=== PATIENT | male | born 1985 | race Hispanic/Latino ===

== ENCOUNTER → 2023-10-20 | Outpatient (CLI) | payer BC, MEDICARE ==
[~2023-10-20] MED LIST: AMOX1TAB16 PO; FOLI0.8T2 PO; LABE300T4 PO; LISI40TA9 PO; NIFE-40 PO; SEVE800T27 PO
== END | disposition home or self-care (01) ==
LOC: LAB 09:43
PROVIDERS: ATTEND Thoracic Surgery (Cardiothoracic Vascular Surgery)
DX: Z48.812 Encounter for surgical aftercare following surgery on the circulatory system (principal); N18.6 End stage renal disease
CPT/HCPCS: 36415; 82565; 84520

== ENCOUNTER → 2023-10-22 | Outpatient (CLI) | payer BC, MEDICARE ==
[~2023-10-22] MED LIST changes: +IOHEXOL 350 MG/ML 100ML INFUS..BTL IV ONE
== END | disposition home or self-care (01) ==
LOC: RAH 09:21
PROVIDERS: ATTEND Thoracic Surgery (Cardiothoracic Vascular Surgery)
DX: Z48.812 Encounter for surgical aftercare following surgery on the circulatory system (principal); N18.6 End stage renal disease; I77.0 Arteriovenous fistula, acquired
CPT/HCPCS: 73206; Q9967

== ENCOUNTER 2024-02-09 06:36 | Day surgery (SDC) | payer BC, MEDICARE ==
[2024-02-08 11:55] LABS: HEMATOCRIT 34.8 % (42-54); MEAN CORPUSCULAR HEMOGLOBIN 31.3 pg (27.0-33.0); MEAN CORPUSCULAR HGB CONC 34.5 g/dL (32.0-36.0); MEAN CORPUSCULAR VOLUME 90.6 fL (79-99); RED BLOOD CELL COUNT(AUTO) 3.84 MIL/uL (4.50-6.20); RED CELL DISTRIBUTION WIDTH 11.8 % (11.0-15.5); WHITE BLOOD COUNT (AUTO) 4.9 K/uL (4.8-10.8)
[2024-02-08 12:09] LABS: INR 0.96 (0.85-1.15); PROTHROMBIN TIME 11.4 SEC (9.6-11.6)
[2024-02-08 12:10] LABS: PARTIAL THROMBOPLASTIN TIME 29.8 SEC (26.3-35.5)
[2024-02-08 12:12] VITALS: BP 163/94; PULSE 68; RESP 15
[2024-02-08 12:25] LABS: CREATININE 16.9 mg/dL (0.5-1.3)
[2024-02-09] VITALS (17 sets, daily range): BP systolic 130–150; BP diastolic 72–97; PULSE 74–85; RESP 13–16
[~2024-02-09] VITALS: Ht 175.3 cm; Wt 114.6 kg
[~2024-02-09 06:36] MED LIST changes: -AMOX1TAB16 PO; -FOLI0.8T2 PO; -IOHEXOL 350 MG/ML 100ML INFUS..BTL IV ONE; -LABE300T4 PO; +LISI10TA24 PO; -LISI40TA9 PO; -NIFE-40 PO; +SEVE800T27; -SEVE800T27 PO
[2024-02-09] MEDS ORDERED: CEFAZOLIN SODIUM 2 GM VIAL ONE (07:05)
[2024-02-09] MEDS ORDERED: CEFAZOLIN SODIUM 1 GM VIAL ONE (07:22)
[2024-02-09] MEDS ORDERED: LIDOCAINE HCL 1% 20 ML VIAL ONE (07:22)
[2024-02-09 07:33] LABS: POTASSIUM 4.4 mmol/L (3.5-5.1)
[2024-02-09 07:37] LABS: CREATININE 12.3 mg/dL (0.5-1.3)
[2024-02-09] MEDS ORDERED: LIDOCAINE PF 100MG/5ML (2%) SYRINGE 5ML ONE ×2 (08:22→10:01)
[2024-02-09] MEDS ORDERED: MIDAZOLAM HCL 1 MG/ML 2ML VIAL ONE (08:22)
[2024-02-09] MEDS ORDERED: DEXAMETHASONE SOD PHOSPHATE 10MG/ML 1ML VIAL ONE (08:22)
[2024-02-09] MEDS ORDERED: SUCCINYLCHOLINE CHLORIDE 20 MG/ML 10 ML VIAL ONE (08:23)
[2024-02-09] MEDS ORDERED: ONDANSETRON 4MG INJ ONE (08:23)
[2024-02-09] MEDS ORDERED: NEOSTIGMINE METHYLSULFATE 1MG/ML IV ONE (08:23)
[2024-02-09] MEDS ORDERED: FENTANYL CITRATE PF 50 MCG/1 ML 2ML VIAL ONE (08:23)
[2024-02-09] MEDS ORDERED: ROCURONIUM BROMIDE 10MG/1ML 5ML VL ONE (08:23)
[2024-02-09] MEDS ORDERED: PROPOFOL 10 MG/ML 20ML VIAL IV ONE ×2 (08:23→10:08)
[2024-02-09] MEDS ORDERED: GLYCOPYRROLATE 0.2 MG/ML 5 ML VIAL ONE (08:23)
[2024-02-09] MEDS: CEFAZOLIN SODIUM 2 GM VIAL IVPB ONE (08:50)
[2024-02-09] MEDS ORDERED: BUPIVACAINE/PF 0.25% 30ML VIAL IJ ONE (09:06)
[2024-02-09] MEDS ORDERED: EPHEDRINE SULFATE 50 MG/ML AMPULE ONE (09:17)
[2024-02-09] MEDS: BUPIVACAINE/PF 0.25% 30ML VIAL IJ ONE ×2 (09:30→09:59)
[2024-02-09] MEDS: LIDOCAINE HCL 1% 20 ML VIAL INJ ONE ×2 (09:30→09:59)
[2024-02-09] MEDS: CEFAZOLIN SODIUM 1 GM VIAL IRRIG ONE (09:30)
[2024-02-09] MEDS ORDERED: HEPARIN 10,000 UNIT/10ML (1,000 UNIT/ML) VIAL ONE (09:35)
[2024-02-09] MEDS ORDERED: PROTAMINE SULFATE 10 MG/ML 5 ML VIAL ONE (09:36)
[2024-02-09] MEDS: 0.9% NACL 500ML IV.SOLN 500 ML IV ONE (09:56)
[2024-02-09] MEDS ORDERED: PHENYLEPHRINE HCL 10 MG/ML 1ML VIAL IV ONE (10:00)
== END 2024-02-09 12:20 | disposition home or self-care (01) ==
LOC: DAH 06:36
PROVIDERS: ATTEND Thoracic Surgery (Cardiothoracic Vascular Surgery)
DX: I12.0 Hypertensive chronic kidney disease with stage 5 chronic kidney disease or end stage renal disease (principal); N18.6 End stage renal disease; Z79.899 Other long term (current) drug therapy; Z79.01 Long term (current) use of anticoagulants; Z87.891 Personal history of nicotine dependence; Z98.890 Other specified postprocedural states; Z99.2 Dependence on renal dialysis
CPT/HCPCS: 80048 ×2; 85027; 85610; 85730; 86850; 86900; 86901; 36415 ×2; 93005; 36830; 82948; 71045; A6260; A4663; A6207; A4215 ×2; A4452; J7040; J3010; J0690 ×4; J1100; J0330; J0665 ×2; J3490 ×3; J2001 ×2; J2720; J1644 ×2; J2250; J2704 ×2; J2405; J2710; J2371; A6446; C9250; A4649 ×3; C1713 ×2; C1768; A5120; A4657; A4213; A4222; A4221; A4216; A4223 ×2; G0168

== ENCOUNTER 2025-08-31 16:46 | Inpatient (IN) | payer BC, MEDICARE ==
[~2025-08-31] VITALS: Ht 177.8 cm; Wt 122.7 kg
[2025-08-31] MEDS ORDERED: 0.9%NACL 1000ML 1,000 ML IV ONE (17:30)
[2025-08-31 17:35] LABS: IMMATURE GRANULOCYTE ABSOLUTE 0.09 K/uL (0-1); NUCLEATED RED BLOOD CELLS 0.0 % (0.0-0.19); PLATELET COUNT (AUTO) 186 K/uL (130-400); RED BLOOD CELL COUNT(AUTO) 4.43 MIL/uL (4.50-6.20); RED CELL DISTRIBUTION WIDTH 14.3 % (11.0-15.5); WHITE BLOOD COUNT (AUTO) 15.8 K/uL (4.8-10.8)
--- NOTE | 2025-08-31 17:51 | ERN ---
General Chief Complaint: Fever Stated Complaint: FEVER Time Seen by MD: 17:10 Time Seen by Midlevel: 17:10 Source: patient History of Present Illness Initial Comments 40-year-old male with a past medical history of end-stage renal disease on hemodialysis presents to the emergency department for evaluation of a fever, chills, generalized body weakness that started yesterday and progressively worsened today. Patient is followed by psychiatric therapist Dr. Monroy and is on a Thursday/Thursday/Thursday dialysis schedule with his last dialysis done yesterday. He specifically denies any shortness of breath, chest pain, or any other symptoms at this time. He does admit to producing urine and does report dysuria. Allergies: Coded Allergies: No Allergy Information Available (Verified Allergy, Unknown, 08/10/22) No Known Allergies (Unverified Allergy, Unknown, 05/21/23) Home Meds Reported Medications Sevelamer HCl (Sevelamer HCl) 800 Mg Tablet, 1600 MG TIDMEALS 02/08/24 Discontinued Reported Medications Lisinopril (Lisinopril) 10 Mg Tablet, 1 TAB PO DAILY 02/08/24 Past Medical History Past Medical History: Hypertension, Renal Disese Past Surgical History: RAVA Social History Social History: Negative, Lives with family ROS Dictation CONSTITUTIONAL: Negative except for HPI HEAD/FACE: Negative except for HPI EENT: Negative except for HPI RESPIRATORY: Negative except for HPI GASTROINTESTINAL/ABDOMINAL: Negative except for HPI GENITOURINARY: Negative except for HPI MUSCULOSKELETAL: Negative except for HPI INTEGUMENTARY: Negative except for HPI NEUROLOGICAL/PSYCH: Negative except for HPI HEMATOLOGIC/LYMPHATIC: Negative except for HPI All Systems Negative, Except as noted above. 13 point review of systems assessed and all negative except for above. Physical Exam Physical Exam Dictation Vital Signs reviewed General Appearance: Alert, oriented x 3, no acute distress, well developed, nourished. Head and Face: non-traumatic. Eyes: PERRL, pink conjunctivas, eyelid no trauma, anterior chamber with arcus senilis. Ears: Pinnas intact and no signs of trauma or erythema ear canals clear and no discharge TM no erythema Nose: No discharge, no bleeding. Oropharynx: Mouth normal, tongue pink, pharynx clear,no erythema, tonsils no exudates, no abscesses noted, mucous membrane moist Neck: Supple, non-tender, no thyromegaly, no masses, no JVD, no bruits Breast:Deferred Chest:No tenderness, no crepitus, no paradoxical movement, no retractions Lungs:Clear, well-ventilated, symmetric, no rales, no wheezing, no rhonchi, no stridor, good breath sounds bilaterally Heart: Regular rate, regular rhythm, no murmur, no gallops Vascular: no peripheral edema, Abdomen: Soft, positive bowel sounds, nondistended, no guarding, nontender, no rebound, no masses no hepatomegaly, no splenomegaly, no Lima's sign, no hernias. Rectal: Deferred Genital: Deferred Neurological: Normal speech, motor function intact, sensory function intact Musculoskeletal: Neck nontender, full range of motion, back nontender, full range of motion, Extremities: nontender, full range of motion Skin: Color pink, dry, no turgor, no rash, no lacerations, no abrasions, no contusions. Lymphatic: Deferred Results Laboratory and Microbiology Lab and Micro Result Laboratory Tests Test 08/31/25 17:19 08/31/25 17:32 White Blood Count 15.8 K/uL (4.8-10.8) H Red Blood Count 4.43 MIL/uL (4.50-6.20) L Hemoglobin 14.0 g/dL (14.0-18.0) Hematocrit 42.4 % (42-54) Mean Corpuscular Volume 95.7 fL (79-99) Mean Corpuscular Hemoglobin 31.6 pg (27.0-33.0) Mean Corpuscular Hemoglobin Concent 33.0 g/dL (32.0-36.0) Red Cell Distribution Width 14.3 % (11.0-15.5) Platelet Count 186 K/uL (130-400) Mean Platelet Volume 11.5 fL (7.5-10.5) H Immature Granulocyte % (Auto) 0.6 % (0-1) Neutrophils (%) (Auto) 83.1 % (40.0-77.0) H Lymphocytes (%) (Auto) 9.1 % (21.0-51.0) L Monocytes (%) (Auto) 6.3 % (3.0-13.0) Eosinophils (%) (Auto) 0.4 % (0.0-8.0) Basophils (%) (Auto) 0.5 % (0.0-5.0) Neutrophils # (Auto) 13.1 K/uL (1.8-7.7) H Lymphocytes # (Auto) 1.4 K/uL (1.0-4.8) Monocytes # (Auto) 1.0 K/uL (0.1-1.0) Eosinophils # (Auto) 0.06 K/uL (0.00-0.70) Basophils # (Auto) 0.08 K/uL (0.00-0.20) Absolute Immature Granulocyte (auto 0.09 K/uL (0-1) Nucleated Red Blood Cells 0.0 % (0.0-0.19) White Cell Morphology Comment See comments Sodium Level 132 mmol/L (136-145) L Potassium Level 4.4 mmol/L (3.5-5.1) Chloride Level 89 mmol/L (101-111) *L Carbon Dioxide Level 26 mmol/L (21-32) Blood Urea Nitrogen 39 mg/dL (7-18) H Creatinine 13.2 mg/dL (0.5-1.3) *H Glomerular Filtration Rate Calc 4 mL/min (>90) Random Glucose 124 mg/dL (70-105) H Lactic Acid Level 1.7 mmol/L (0.8-2.5) Total Calcium 8.6 mg/dL (8.5-10.1) Magnesium Level 2.00 mg/dL (1.80-2.40) Total Bilirubin 0.9 mg/dL (0.2-1.0) Aspartate Amino Transf (AST/SGOT) 15 U/L (10-37) Alanine Aminotransferase (ALT/SGPT) 19 U/L (12-78) Alkaline Phosphatase 257 U/L (50-136) H Troponin I High Sensitivity 259 ng/L (4-75) *H B-Type Natriuretic Peptide 36 pg/mL (0-100) Total Protein 9.3 g/dL (6.0-8.3) H Albumin 4.1 g/dL (3.5-5.0) Procalcitonin 11.34 ng/mL (0.05-0.5) H Influenza Type A Antigen Negative For Type A Influenza Type B Antigen Negative For Type B SARS-CoV-2, RNA, NAAT NEGATIVE SARS CoV-2 Labs Reviewed?: Yes MDM MDM: Differential diagnosis: Sepsis, urinary tract infection, dehydration, electrolyte abnormality Rationale: Tests considered and ordered secondary to shared decision making i nclude: Previous outside records reviewed: Old ER visits. Risk of complication and/or morbidity or mortality of patient management: None Medications-Per medication reconciliation Need for hospitalization: Patient does meet criteria for hospitalization. Need for emergency major/minor surgery: No There are no social concerns with this patient. Prescription drug management Prescriptions will include symptomatic care Patient's prior external medical records from other ER visits were reviewed by me as indicated. Prior testing and results from previous visits were reviewed. Prior tests were taken into account with medical decision making and resource utilization, independent historian/historians were used to obtain complete medical history. I independently interpreted the test that were performed, results were reviewed by me and considered findings on radiology if ordered. Medical management and examination interpretation discussions were had by me with other qualified healthcare professionals as indicated for the patient's care. ED Course Orders Procedure Category Date Status Time Cbc With Differential LAB 08/31/25 Complete 17:14 Blood Cult SABINE 08/31/25 In Process 17:14 Urinalysis Profile LAB 08/31/25 Complete 17:14 Lactic Acid LAB 08/31/25 Complete 17:14 Magnesium LAB 08/31/25 Complete 17:14 Troponin I High LAB 08/31/25 Complete Sensitivity 17:14 Comprehensive LAB 08/31/25 Complete Metabolic Panel 17:14 Chest 1vw RAD 08/31/25 Resulted 17:14 Covid Rna Naat LAB 08/31/25 Complete 17:15 Influenza Type A & B, LAB 08/31/25 Complete Rapid 17:15 Acetaminophen 500mg PHA 08/31/25 Complete Tab (Tylenol 500mg T 17:30 0.9%Nacl 1000ml (Ns PHA 08/31/25 Complete 1000ml) 17:30 Ct Abdomen/Pelvis W/O CT 08/31/25 Resulted Contrast 18:50 Ceftriaxone 2gm Vial PHA 08/31/25 Complete (Rocephin 2gm Inj) 19:00 Current Medications Medications (Trade) Dose Ordered Sig/Amish Route PRN Reason Start Time Stop Time Status Last Admin Dose Admin Acetaminophen (TYLenol 500MG TAB) 1,000 mg ONCE ONCE PO 08/31/25 17:30 08/31/25 17:31 DC 08/31/25 17:33 Ceftriaxone Sodium (Rocephin 2gm Inj) 2 gm ONCE ONCE IVPB 08/31/25 19:00 08/31/25 19:01 DC 08/31/25 19:51 Sodium Chloride 1,000 ml @ 0 mls/hr ONCE ONCE IV 08/31/25 17:30 08/31/25 17:28 DC Vital Signs Date Time Temp Pulse Resp B/P (MAP) Pulse Ox O2 Delivery O2 Flow Rate FiO2 08/31/25 20:11 100.6 114 18 151/102 96 Room Air* 0 21 08/31/25 17:33 100.0 08/31/25 16:53 100.9 118 18 168/111 95 Room Air* 0 21 08/31/25 16:50 100.9 118 18 168/111 95 Room Air 0 DX & DISP Disposition: Inpatient Departure Impression: Primary Impression: Sepsis Additional Impressions: Urinary tract infection, Leukocytosis, End-stage renal disease on hemodialysis Condition: Stable Referrals: NAHUN MONROY MD (PCP) I have reviewed the case, and I agree with, Diagnosis and Plan I performed the substantive portion of the visit. I have reviewed and personally made and approve the management plan that is documented in the note by myself or the JOSÉ MIGUEL. I acknowledge for responsibility for the patient's management plan. BABAR CHADWICK PAC Aug 31, 2025 17:51
[2025-08-31 17:52] LABS: ASPARTATE AMINOTRANSFERASE 15.0 U/L (10-37); GLOMERULAR FILTR. RATE CALC 4.0 mL/min (>90); GLUCOSE,RANDOM 124.0 mg/dL (70-105); SODIUM SERUM 132.0 mmol/L (136-145); TOTAL PROTEIN, SERUM 9.3 g/dL (6.0-8.3); UREA NITROGEN, BLOOD 39.0 mg/dL (7-18)
[2025-08-31 18:01] LABS: CREATININE 13.2 mg/dL (0.5-1.3)
[2025-08-31 18:19] LABS: SARS-CoV-2, RNA, NAAT NEGATIVE SARS CoV-2 (NEGATIVE)
[2025-08-31 18:27] LABS: INFLUENZA TYPE A Negative For Type A (NEGATIVE); INFLUENZA TYPE B Negative For Type B (NEGATIVE)
--- NOTE | 2025-08-31 19:12 | HMCIMG ---
EXAM: CR Chest, 1 View. CLINICAL HISTORY: sepsis COMPARISON: None provided. FINDINGS: LUNGS: The lungs show no infiltrate or other acute finding. PLEURAL SPACES: No evidence of pleural effusion or pneumothorax. MEDIASTINUM: The cardiomediastinal silhouette is within normal limits. BONES: No aggressive appearing osseous lesion seen. IMPRESSION: No acute cardiopulmonary pathology is evident. /[place]
--- NOTE | 2025-08-31 19:56 | NUR ---
PT ASKED OF HE CAN PROVIDE URINE SAMPLE. PER PT, HE PRODUCES VERY LITTLE URINE DUE TO HEMODIALYSIS.
--- NOTE | 2025-08-31 20:14 | HMCIMG ---
EXAM: CT Abdomen and Pelvis Without IV contrast CLINICAL HISTORY: lower abd pain TECHNIQUE: Axial computed tomography images of the abdomen and pelvis without intravenous contrast. CONTRAST: No IV contrast. COMPARISON: None provided. FINDINGS: LUNG BASES: The lung bases appear clear. No pleural effusions are seen. LIVER: Fatty liver. GALLBLADDER AND BILE DUCTS: The gallbladder appears within normal limits. No radioopaque gallstones are seen. No biliary ductal dilatation is evident. PANCREAS: Unremarkable. SPLEEN: Unremarkable. ADRENAL GLANDS: Unremarkable. KIDNEYS, URETERS, AND BLADDER: Bilateral atrophic kidneys. There is no hydronephrosis or hydroureter. No urinary calculi are seen. Thick-walled urinary bladder with stranding, consistent with cystitis. STOMACH AND BOWEL: Unremarkable appearance of the stomach and bowel. No evidence of bowel obstruction. No evidence suggesting enteritis or colitis. APPENDIX: Normal appendix. PERITONEUM: No free fluid. No free air. LYMPH NODES: No lymphadenopathy is evident. REPRODUCTIVE: Unremarkable as visualized. VASCULATURE: No evidence of abdominal aortic aneurysm. BONES: No aggressive appearing osseous lesion. No acute osseous pathology evident. IMPRESSION: Thick-walled urinary bladder with stranding, consistent with cystitis. Atrophic kidneys. No hydronephrosis. No bowel obstruction or inflammation. Normal appendix. Fatty liver. /[facility]
--- NOTE | 2025-08-31 21:05 | HP ---
History of Present Illness Reason for Visit: fever History of Present Illness Mr. Nathan is a 40-year-old male that was seen and examined today on 08/31/2025. Patient is a good historian of personal health Patient states he came to the emergency department with a chief complaint of fever. Onset was 08/29/2025 at 7:00 p.m.. Location is to entire body. Duration is on and off. Character is described as feeling cold. There was no alleviating factors. There was no aggravating factors. Patient reports associated chills Today in the emergency department WBCs 15.8, left shift neutrophils 88%, BUN 39, creatinine 13.2, GFR four, troponin 259, no urinalysis was able to be obtained, flu negative, COVID negative, chest x-ray unremarkable. CT of abdomen and pelvis shows fat stranding of the urinary bladder consistent with cystitis. Additionally patient presented with a temperature of 100.9, heart rate 118 together with WBCs of 13.5 patient met clinical sepsis criteria. 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 Cuenca] SOCIAL HISTORY: [Negative for smoking, alcohol use, drug use. Patient lives with his parents. Patient's mom's name is ethan nathan. Patient is typically independent of all his ADLs. Patient denies difficulty pain is bills.] SURGICAL HISTORY: [RA VA] Review of Systems General: Fever, Chills; No Night Sweats, No Fatigue, No Malaise, No Appetite, No Other HEENT: No Head Aches, No Visual Changes, No Eye Pain, No Ear Pain, No Dysph juanita, No Sinus Congestion, No Post Nasal Drip, No Sore Throat, No Other Pulmonary: No Dyspnea, No Cough, No Pleuritic Chest Pain, No Other Cardiovascular: No: Chest Pain, Palpitations, Orthopnea, Paroxysmal Noc. Dyspnea, Edema, Lt Headedness, Other Gastrointestinal: No: Nausea, Vomiting, Abdominal Pain, Diarrhea, Constipation, Melena, Hematochezia, Other Genitourinary: No Dysuria, No Frequency, No Incontinence, No Hematuria, No Retention, No Other Musculoskeletal: No: other, neck pain, shoulder pain, arm pain, back pain, hand pain, leg pain, foot pain Skin: No Urticaria, No Rash, No Other Neurological: No: Weakness, Numbness, Incoordination, Change in speech, Confusion, Seizures, Other Allergies: Coded Allergies: No Allergy Information Available (Verified Allergy, Unknown, 08/10/22) No Known Allergies (Unverified Allergy, Unknown, 05/21/23) Scheduled Sevelamer HCl (Sevelamer HCl), 1,600 MG TIDMEALS, (Reported) Discontinued Medications Lisinopril (Lisinopril), 1 TAB PO DAILY, (Reported) Exam Vital Signs Vital Signs Date Time Temp Pulse Resp B/P (MAP) Pulse Ox O2 Delivery O2 Flow Rate FiO2 08/31/25 20:11 100.6 114 18 151/102 96 Room Air* 0 21 General Appearance: Alert, Oriented X3, Cooperative, mild distress HEENT: Atraumatic, EOMI Respiratory: Clear to auscultation, Normal air movement, NL respiratory effort Cardiovascular: Regular rate, Regular rhythm, Normal S1, Normal S2 Abdominal: Normal bowel sounds, Soft, No tenderness Extremities: No edema Skin: No significant lesion Neuro: Normal gait, Normal speech, Strength at 5/5 X4 ext, Sensation intact, Cranial nerves 3-12 NL Psych/Mental Status: Mental status NL, Mood NL, Thoughts/Content NL Assessment/Plan ASSESSMENT: [ Sepsis, POA Urinary tract infection, POA Leukocytosis, POA Elevated troponin, POA ESRD on HD Hypertension PLAN: [ Admit patient to medical floor as inpatient status. Place patient on telemetry monitoring. Decided against full fluid resuscitation 30 mL/kg given patient's ESRD. Patient received 1 L 0.9% NS for fluid resuscitation. Empiric antibiotic therapy with Zosyn Check procalcitonin, follow up with the results Reviewed patient's lactic acid which was unremarkable Check blood culture, follow up with the results Administer aspirin 162 mg by mouth times 1 dose Continue aspirin 81 mg by mouth once daily Nitropaste 0.5 inches anterior chest wall every 8 hours Trend troponin every 6 hours x 3 sets Supplemental oxygen to maintain O2 saturation greater than 92% Consult cardiology if any elevation in troponin or troponin uptrending, or if patient deemed to need stress test by daytime rouding service. Consult patient's funeral home location manager for evaluation recommendations as well as hemodialysis management Avoid nephrotoxic agents when possible Renally dose all medications when possible 1500 mL daily fluid restriction Weight patient daily Intake and output every shift Consider resuming home medications once they have been reconciled At time of admission home medications has been reconciled For now: Hydralazine 10 mg IV every 4 hours for systolic blood pressure greater than 160 mmHg GI prophylaxis, Protonix DVT prophylaxis, Lovenox ADVANCED CARE PLANNING 1. Which of the following were discussed? Hospice Care - Yes Therapeutic options - yes Advance Directives - Yes - patient states he does not have any advance directives in place at this time, however his mother can make decisions for him if he becomes unable Other discussions - patient wishes to remain a full code at this time 2. Discussed with who? Patient 3. Voluntary nature of this service was explained to the patient? Yes 4. Amount of time spent - ___16 minutes____ 5. Reviewed by Physician? (if this service was performed by NPP) Yes This document was generated in part using voice recognition software, occasional wrong word or sound alike substitutions may have occurred due to the inherent limitations of voice recognition software. Read the chart carefully and recog nize using context, where the substitutions have occurred. Although every effort was made to edit the content, clothes wringer and typing errors may occur ATTESTATION BY PHYSICIAN I have seen and examined the patient. I reviewed the documentation, medical decision making, and treatment plan as noted by the mid-level provider above. I agree with the findings and plan of care. ] RONNIE EDWARDS [facility] Aug 31, 2025 21:05
[2025-08-31] MEDS ORDERED: LACTULOSE 20 GM/30 ML UDCUP PO PRN (21:30)
[2025-08-31] MEDS: ASPIRIN 81MG CHEW TAB PO ONE (21:35)
[2025-08-31] MEDS: ZOSYN 3.375GM +NS 50ML IV SCH (21:35)
[2025-08-31] MEDS: NITROGLYCERIN 1GM OINT 1 INCH/1GM TD SCH (21:36)
--- NOTE | 2025-08-31 23:18 | NUR ---
REPORT GIVEN TO BREN JACOBO
[2025-09-01] VITALS (24 sets, daily range): BP systolic 98–174; BP diastolic 67–118; PULSE 90–134; RESP 14–20; TEMP 98.1–100.5; O2SAT 95–96
--- NOTE | 2025-09-01 00:20 | NUR ---
ADMIT PT ADMITTED TO ROOM 321, AAOX3. DENIES ANY PAINS AT THIS TIME. NO NOTED DISTRESS. ADMISSION CARE DONE. PLACED COMFORTABLY IN BED WITH HOB ELEVATED. ADMISSION V/S MONITORED, NOTED TO BE WITH ELEVATED BP AND HR. ADMISSION ASSESSMENT DONE. PLACED PT ON TELE MONITOR. HYDRALAZINE IV ADMINISTERED FOR ELEVATED BP. ORIENTED TO ROOM AND UNIT. IN FOR MORE CARE AND MANAGEMENT. Addendum: 09/01/25 at 0123 by BREN CAREY RN RN Amended: Links added.
--- NOTE | 2025-09-01 00:35 | NUR ---
CONSENT CONSENT FOR HD SIGNED BY PT AND WITNESSED BY LAPIDARIST. FORM PLACED IN CHART.
--- NOTE | 2025-09-01 03:44 | NUR ---
FEVER/PAIN PT'S UHYSOGOMCPJ=878.5 DEGREES WITH GENERALIZED ACHING, QH=390'S. MEDICATED WITH TYLENOL PO. ENCOURAGED TO REST IN BED. REMOVED EXTRA BLANKET. KEPT ROOM TEMPERATURE COOL. WILL RE-ASSESS PT.
[2025-09-01 04:31] LABS: APPEARANCE,URINE TURBID (CLEAR)
[2025-09-01 04:39] LABS: GLUCOSE, URINE (UA) NEGATIVE (NEGATIVE); OCCULT BLOOD,URINE LARGE (NEGATIVE)
[2025-09-01 04:40] LABS: ADD UA MICROSCOPIC YES; LEUKOCYTE ESTERASE ,URINE LARGE Leu/uL (NEGATIVE); NITRATE,URINE POSITIVE (NEGATIVE)
[2025-09-01 04:42] LABS: SQUAMOUS EPITHELIAL CELL,UR MOD /HPF (0-2); WBC CLUMP MANY /HPF (0-1)
[2025-09-01 05:20] LABS: IMMATURE GRANULOCYTE ABSOLUTE 0.09 K/uL (0-1); NUCLEATED RED BLOOD CELLS 0.0 % (0.0-0.19); PLATELET COUNT (AUTO) 163 K/uL (130-400); RED BLOOD CELL COUNT(AUTO) 4.15 MIL/uL (4.50-6.20); RED CELL DISTRIBUTION WIDTH 14.3 % (11.0-15.5); WHITE BLOOD COUNT (AUTO) 15.0 K/uL (4.8-10.8)
[2025-09-01 05:42] LABS: GLOMERULAR FILTR. RATE CALC 4.0 mL/min (>90); GLUCOSE,RANDOM 139.0 mg/dL (70-105); PHOSPHORUS 6.0 mg/dL (2.5-4.9); SODIUM SERUM 131.0 mmol/L (136-145); UREA NITROGEN, BLOOD 46.0 mg/dL (7-18)
[2025-09-01 06:08] LABS: CREATININE 15.0 mg/dL (0.5-1.3)
[2025-09-01] MEDS: ASPIRIN 81 MG EC TAB PO SCH (08:51)
--- NOTE | 2025-09-01 11:24 | NUR ---
DCP:HOME Pt currently lives at home with his mom Renetta Layton [phone]. Pt does not have any DME, home health, or provider services. Pt states that she is able to complete ADLs independently. Pt does not have a PCP however already has a list of providers in his network that he will contact to establish as a patient. At [place] pt will want to go home and family can assist with transportation. Addendum: 09/01/25 at 1128 by DAVID SANTIAGO SS Amended: Links added.
[2025-09-01] MEDS: 0.9%NACL 1000ML 1,000 ML IV ONE (14:54)
--- NOTE | 2025-09-01 15:48 | PN ---
[facility] PROGRESS NOTE Date of Service: Sep 01, 2025 Time of Service: 15:17 SUBJECTIVE: Mr. Layton is a 40-year-old male that was seen and examined today on 08/31/2025. Patient states he came to the emergency department with a chief complaint of fever. Onset was 08/29/2025 at 7:00 p.m.. Location is to entire body. Duration is on and off. Character is described as feeling cold. There was no alleviating factors. There was no aggravating factors. Patient reports associated chills. He has a past medical history of hypertension, ESRD on hemodialysis. As per the patient he has end-stage renal disease is due to uncontrolled hypertension. Patient is followed by process stripper Dr. Cuenca and is on a Thursday/Thursday/Thursday dialysis schedule with his last dialysis done . He specifically denies any shortness of breath, chest pain, or any other symptoms at this time. He does admit to producing urine and does report dysuria. Today in the emergency department WBCs 15.8, left shift neutrophils 88%, BUN 39, creatinine 13.2, GFR four, troponin 259, no urinalysis was able to be obtained, flu negative, COVID negative, chest x-ray unremarkable. CT of abdomen and pelvis shows fat stranding of the urinary bladder consistent with cystitis. Additionally patient presented with a temperature of 100.9, heart rate 118 together with WBCs of 13.5 patient met clinical sepsis criteria. 09/01/25 Patient was evaluated at the bedside. He was comfortably lying in the bed. He was hemodynamically stable. His fever has subsided and does not have associated chills. WBC has trended down from 15.8-15.0. Serum troponin levels are 243, 264 and 246 which could possibly due to end-stage renal disease. His CRP level is elevated and it's 149.60. In addition to that his procalcitonin was substantially high 11.34. REVIEW OF SYSTEMS CONSTITUTIONAL: No fever, chills, or night sweats. NEUROLOGICAL: Denies headache, sensory and motor deficit. CARDIOVASCULAR: Denies any exertional angina, dyspnea on exertion, orthopnea, paroxysmal nocturnal dyspnea, palpitations. PULMONARY: Denies any shortness of breath, cough, phlegm/sputum, hemoptysis, pleuritic chest pain. GASTROINTESTINAL: Denies nausea, vomiting. Denies pain, tenderness around the abdomen. GENITOURINARY: Denies frequency, urgency, nocturia, hematuria or incontinence. PHYSICAL EXAM GENERAL APPEARANCE: The patient is alert, awake and oriented and bedbound. NEUROLOGICAL: No sensory and motor deficits. CHEST: Normal chest expansion. LUNGS: Normal vesicular breath sound. Absence of any rales, rhonchi or any wheezing. CARDIOVASCULAR: Regular. S1 and S2 normal. No appreciable rubs, murmurs or gallops. ABDOMEN: Soft nontender, and nondistended. There is no rebound, voluntary guarding, or rigidity. GENITOURINARY: No suprapubic tenderness. No costovertebral angle tenderness. Vital Signs (last 8hr) Date Time Temp Pulse Resp B/P (MAP) Pulse Ox O2 Delivery O2 Flow Rate FiO2 09/01/25 12:00 98.4 90 18 138/86 95 Room Air 09/01/25 08:00 98.2 95 18 131/72 95 Room Air LABS: Laboratory: Test 09/01/25 11:00 09/01/25 05:03 09/01/25 04:20 08/31/25 17:32 Range/Units Troponin I High Sensitivity 246 *H 4-75 ng/L White Blood Count 15.0 H 4.8-10.8 K/uL Red Blood Count 4.15 L 4.50-6.20 MIL/uL Hemoglobin 13.1 L 14.0-18.0 g/dL Hematocrit 40.2 L 42-54 % Mean Corpuscular Volume 96.9 79-99 fL Mean Corpuscular Hemoglobin 31.6 27.0-33.0 pg Mean Corpuscular Hemoglobin Concent 32.6 32.0-36.0 g/dL Red Cell Distribution Width 14.3 11.0-15.5 % Platelet Count 163 130-400 K/uL Mean Platelet Volume 11.6 H 7.5-10.5 fL Immature Granulocyte % (Auto) 0.6 0-1 % Neutrophils (%) (Auto) 86.8 H 40.0-77.0 % Lymphocytes (%) (Auto) 6.5 L 21.0-51.0 % Monocytes (%) (Auto) 5.6 3.0-13.0 % Eosinophils (%) (Auto) 0.1 0.0-8.0 % Basophils (%) (Auto) 0.4 0.0-5.0 % Neutrophils # (Auto) 13.0 H 1.8-7.7 K/uL Lymphocytes # (Auto) 1.0 1.0-4.8 K/uL Monocytes # (Auto) 0.8 0.1-1.0 K/uL Eosinophils # (Auto) 0.02 0.00-0.70 K/uL Basophils # (Auto) 0.06 0.00-0.20 K/uL Absolute Immature Granulocyte (auto 0.09 0-1 K/uL Nucleated Red Blood Cells 0.0 0.0-0.19 % Sodium Level 131 L 136-145 mmol/L Potassium Level 5.2 H 3.5-5.1 mmol/L Chloride Level 88 *L 101-111 mmol/L Carbon Dioxide Level 24 21-32 mmol/L Blood Urea Nitrogen 46 H 7-18 mg/dL Creatinine 15.0 *H 0.5-1.3 mg/dL Glomerular Filtration Rate Calc 4 >90 mL/min Random Glucose 139 H 70-105 mg/dL Total Calcium 8.3 L 8.5-10.1 mg/dL Phosphorus Level 6.0 H 2.5-4.9 mg/dL Magnesium Level 1.90 1.80-2.40 mg/dL C-Reactive Protein, Quantitative 149.60 H 0.5-3.0 mg/L Urine Color BROWN YELLOW Urine Appearance TURBID CLEAR Urine pH 6.5 5.0-8.0 Urine Specific [place] 1.015 1.001-1.031 Urine Protein 300 (3+) H NEGATIVE mg/dL Urine Glucose (UA) NEGATIVE NEGATIVE mg/dL Urine Ketones NEGATIVE NEGATIVE mg/dL Urine Occult Blood LARGE H NEGATIVE Urine Nitrate POSITIVE H NEGATIVE Urine Bilirubin NEGATIVE NEGATIVE mg/dL Urine Urobilinogen 0.2 0.2-1.0 mg/dL Urine Leukocyte Esterase LARGE H NEGATIVE [place]/uL Urine RBC TNTC H 0-1 /HPF Urine WBC TNTC H 0-1 /HPF Urine WBC Clumps (Auto) MANY 0-1 /HPF Urine Squamous Epithelial Cells MOD 0-2 /HPF Urine Bacteria FEW None Seen /HPF Influenza Type A Antigen Negative For Type A NEGATIVE Influenza Type B Antigen Negative For Type B NEGATIVE SARS-CoV-2, RNA, NAAT NEGATIVE SARS CoV-2 NEGATIVE Test 08/31/25 17:19 Range/Units White Cell Morphology Comment See comments Lactic Acid Level 1.7 0.8-2.5 mmol/L Total Bilirubin 0.9 0.2-1.0 mg/dL Aspartate Amino Transf (AST/SGOT) 15 10-37 U/L Alanine Aminotransferase (ALT/SGPT) 19 12-78 U/L Alkaline Phosphatase 257 H 50-136 U/L B-Type Natriuretic Peptide 36 0-100 pg/mL Total Protein 9.3 H 6.0-8.3 g/dL Albumin 4.1 3.5-5.0 g/dL Procalcitonin 11.34 H 0.05-0.5 ng/mL Current Medications Medications (Trade) Dose Ordered Sig/Amish Route PRN Reason Start Time Stop Time Status Last Admin Dose Admin Acetaminophen (TYLenol 325MG TAB) 650 mg Q6H PRN PO TEMPERATURE GREATER THAN 101.5 08/31/25 21:30 09/30/25 21:29 09/01/25 03:44 650 MG Aspirin (Aspirin 81mg Ec Tab) 81 mg DAILY PO 09/01/25 09:00 10/01/25 08:59 09/01/25 08:51 81 MG Heparin Sodium (Porcine) (HEParin 5,000 UNIT VIAL) 5,000 unit BID SQ 09/01/25 09:00 10/01/25 08:59 Hydralazine HCl (APRESOLine 20MG INJ) 10 mg Q6H PRN IV For:SBP above 160;DBP above 90 08/31/25 21:30 09/30/25 21:29 09/01/25 00:32 10 MG Hydromorphone HCl (DiLAUDid 0.5MG INJ) 0.25 mg Q4H PRN IVP SEVERE PAIN (7-10) 08/31/25 21:30 09/05/25 21:29 Lactulose (Constulose 20gm/ 30ml Udcup) 20 gm BID PRN PO CONSTIPATION 08/31/25 21:30 09/30/25 21:29 Nitroglycerin (Nitroglycerin 1gm Oint) 0.5 inch Q8H TD 08/31/25 21:30 09/04/25 21:29 09/01/25 05:04 0.5 INCH Ondansetron HCl (zoFRAN 4MG INJ) 4 mg Q6H PRN IV NAUSEA/VOMITING 08/31/25 21:30 09/30/25 21:29 Pantoprazole Sodium (PROTonix 40MG TAB) 40 mg DAILY PO 09/01/25 09:00 10/01/25 08:59 09/01/25 08:51 40 MG Piperacillin Sod/ Tazobactam Sod (Zosyn 3.375gm+NS 50ml) 3.375 gm Q12H IV 08/31/25 21:30 09/10/25 21:29 09/01/25 08:51 3.375 GM Sevelamer HCl (RENAgel 800 MG TAB) 1,600 mg TIDMEALS PO 09/01/25 12:00 10/01/25 11:59 09/01/25 13:25 1,600 MG DIAGNOSTICS / RADIOLOGY: [place] [address] IMAGING REPORT Signed PATIENT: ROSALVA LAYTON JR MR#: [id number] : 1985 SEX: M AGE: 40 LOCATION: [facility] ORDER 51 STATUS: REG ER REPORT#: [id number] SERVICE 49 REASON: lower abd pain ORDERING PHYSICIAN: BABAR CHADWICK PAC PROCEDURE: ABD PEL WO - CT ABDOMEN/PELVIS W/O CONTRAST EXAM: CT Abdomen and Pelvis Without IV contrast CLINICAL HISTORY: lower abd pain TECHNIQUE: Axial computed tomography images of the abdomen and pelvis without intravenous contrast. CONTRAST: No IV contrast. COMPARISON: None provided. FINDINGS: LUNG BASES: The lung bases appear clear. No pleural effusions are seen. LIVER: Fatty liver. GALLBLADDER AND BILE DUCTS: The gallbladder appears within normal limits. No radioopaque gallstones are seen. No biliary ductal dilatation is evident. PANCREAS: Unremarkable. SPLEEN: Unremarkable. ADRENAL GLANDS: Unremarkable. KIDNEYS, URETERS, AND BLADDER: Bilateral atrophic kidneys. There is no hydronephrosis or hydroureter. No urinary calculi are seen. Thick-walled urinary bladder with stranding, consistent with cystitis. STOMACH AND BOWEL: Unremarkable appearance of the stomach and bowel. No evidence of bowel obstruction. No evidence suggesting enteritis or colitis. APPENDIX: Normal appendix. PERITONEUM: No free fluid. No free air. LYMPH NODES: No lymphadenopathy is evident. REPRODUCTIVE: Unremarkable as visualized. VASCULATURE: No evidence of abdominal aortic aneurysm. BONES: No aggressive appearing osseous lesion. No acute osseous pathology evident. IMPRESSION: Thick-walled urinary bladder with stranding, consistent with cystitis. Atrophic kidneys. No hydronephrosis. No bowel obstruction or inflammation. Normal appendix. Fatty liver. /[place] DICTATED BY: LESLIE PHILLIPS MD DATE: 08/31/252112 ELECTRONICALLY SIGNED BY: LESLIE PHILLIPS MD DATE: 08/31/252112 [address] [address] [place] [address] IMAGING REPORT Signed PATIENT: ROSALVA LAYTON JR MR#: [id number] : 1985 SEX: M AGE: 40 LOCATION: [facility] ORDER 14 STATUS: REG REPORT#: [id number] SERVICE 13 REASON: sepsis ORDERING PHYSICIAN: BABAR CHADWICK PAC PROCEDURE: CXR1VW - CHEST 1VW EXAM: CR Chest, 1 View. CLINICAL HISTORY: sepsis COMPARISON: None provided. FINDINGS: LUNGS: The lungs show no infiltrate or other acute finding. PLEURAL SPACES: No evidence of pleural effusion or pneumothorax. MEDIASTINUM: The cardiomediastinal silhouette is within normal limits. BONES: No aggressive appearing osseous lesion seen. IMPRESSION: No acute cardiopulmonary pathology is evident. /[place] DICTATED BY: LESLIE PHILLIPS MD DATE: 08/31/252010 ELECTRONICALLY SIGNED BY: LESLIE PHILLIPS MD DATE: 08/31/252010 ASSESSMENT: Sepsis, POA End stage renal disease, POA Hypertroponinemia secondary to ESRD Elevated Alkaline phosphatase PLAN: Sepsis * During presentation his WBC was 15.8, Pulse 118, respiratory rate 26 and temperature 100.9.08/31/25 * Urinalysis showed high leukocyte esterase, high red blood cells and high WBC. * His CRP level is elevated and it's 149.60. * In addition to that his procalcitonin was substantially high 11.34. * He is currently on Zosyn (Day 2). * WBC has trended down from 15.8-15.0. 09/01/25 * CT scan showed: Bilateral atrophic kidneys. There is no hydronephrosis or hydroureter. No urinary calculi are seen. Thick-walled urinary bladder with stranding, consistent with cystitis. * Blood culture and urine culture has been sent and currently awaiting the reports. End stage renal disease * Patient's creatinine level was 13.2 During presentation and has trended up to 15.0. * Blood urea nitrogen has trended up from 39 to 46 * His serum sodium is low 131 and potassium level is 5.2. * Patient undergoes dialysis on Thursday and Thursday and is followed by Dr. Cuenca. * He has been planned for dialysis today. 09/01/25 Hypertroponinemia secondary to ESRD * Serum troponin levels are 243, 264 and 246 which could possibly due to end- stage renal disease. * Optimize volume status and dialysis schedule to reduced cardiac strain * Recognize chronic troponin elevation as baseline due to reduced renal clearance * Manage contributing factors such as hypertension Elevated Alkaline phosphatase * Patient's ALP level is 257 but AST and ALT is 15 and 19 respectively. * Hepatitis panel was ordered and awaiting the reports Supportive measures * Continue monitoring morning labs that includes CBC and BMP * DVT and GI prophylaxis as recommended * Continue monitoring the patient closely ATTESTATION BY PHYSICIAN I have seen and examined the patient. I reviewed the documentation, medical decision making, and treatment plan as noted by the resident physician above. I agree with the findings and plan of care. KATY GONZALES MD REYNA LEWIS MD Sep 01, 2025 15:48
--- NOTE | 2025-09-01 20:20 | NUR ---
MEDS SHIFT ASSESSMENT DONE, PLEASE REFER TO CHART. DUE MEDS ADMINISTERED, TOLERATED WELL. KEPT RESTED AND COMFORTABLE IN BED. CALL LIGHT WITHIN REACH.
--- NOTE | 2025-09-01 21:02 | NUR ---
PAGED PT'S HR IS SUSTAINING ON THE 130'S AT REST AND INCREASED TO 150'S WITH ACTIVITY. PT DENIES ANY DISCOMFORT NOR PAINS. NO DISTRESS NOTED. PAGED NPO SOFTWARE ENGINEERING ASSOCIATE MANAGER VIA ANSWERING SERVICE. AWAITING CALL BACK.
--- NOTE | 2025-09-01 21:07 | NUR ---
FUR SEWER FUR SEWER RONNIE EDWARDS CALLED BACK AND REFERRED PT'S TACHYCARDIA AND LOW BP. NEW ORDERS RECEIVED, PLEASE REFER TO CPOE. STARTED ON IV NS BOLUS OF 250CC. WILL KEEP ON CLOSE WATCH.
[2025-09-01] MEDS: 0.9% NACL 250ML 250 ML IV SCH (21:15)
--- NOTE | 2025-09-01 21:23 | CONS ---
REFERRING PHYSICIAN: Dr. Parminder Fair. REASON FOR CONSULTATION: Pyelonephritis, ESRD. HISTORY OF PRESENT ILLNESS: A 40-year-old male with a history of diabetes mellitus and hypertension. He has a history of end-stage renal disease, on dialysis x 3 a week. The patient presented to the Emergency Room with complaints of significant fevers at home. The patient also complaining of dysuria. In the Emergency Room, the patient was found to have significant fevers with a temperature of 101 degrees Fahrenheit as well as significant tachycardia. Urinalysis revealed significant pyuria. He was started on broad-spectrum IV antibiotics and the patient is being seen in consultation for all of the above. The patient received dialysis on a Thursday, Thursday, and Thursday schedule. PAST MEDICAL HISTORY: There is mild hypertension, ESRD. PAST SURGICAL HISTORY: AV access. SOCIAL HISTORY: Lives independently. There is no alcohol or tobacco use. FAMILY HISTORY: There is no renal disease in the family. ALLERGIES: There are no allergies. MEDICATIONS: Noted. REVIEW OF SYSTEMS: GENERAL: The patient is feeling weak and tired. HEENT: No change in vision. No change in hearing. CARDIOVASCULAR: There is no current chest pains or palpitations. PULMONARY: Denies any shortness of breath. GASTROINTESTINAL: He is tolerating diet. MUSCULOSKELETAL: Complains of weakness. NEUROLOGIC: No seizures or focal deficits. PSYCHIATRIC: No history of hallucinations, psychosis. ENDOCRINE: Diabetes mellitus. No history of thyroid disease. HEME: History of anemia. No history of malignancy. PHYSICAL EXAMINATION: VITAL SIGNS: His blood pressure is 131/72. Pulse 90s. He is afebrile. GENERAL: He is a chronically ill male, young, lying in bed on the medical floor. HEENT: Head is atraumatic. Pupils are equal, round, and reactive to light. Oropharynx is without exudate. NECK: Clear. There is no JVP. There is no thyromegaly. No mass. CARDIOVASCULAR: Regular. There is no S3, S4 or gallop. LUNGS: Coarse with equal thoracic movement. ABDOMEN: Soft, nondistended, and nontender. EXTREMITIES: Reveal no clubbing, no cyanosis. NEUROLOGICAL: He is awake. He is alert. He is oriented. SKIN: Reveals no rash or nodules. BACK: There is no CVA tenderness. No back deformities. LABORATORY DATA: Urinalysis reveals pyuria. Sodium 131, potassium 5.2, BUN 46, creatinine 15, phosphorus is 6, hemoglobin 13, hematocrit 35, white blood cell count 15,000 with a left shift. IMAGING: CT scan is noted. IMPRESSION: * Sepsis, source genitourinary. * Diabetes mellitus. * Hypertension. * Anemia. * End-stage renal disease. PLAN: The patient presents with sepsis. The patient is started on broad-spectrum IV antibiotics while we await culture results. The patient does have a history of end-stage renal disease and he will proceed with dialysis on the day of this consultation. Continue on Thursday, Thursday, Thursday schedule. The patient has been resumed on all of his antihypertensive medications. He has been resumed on his phosphate binders. No need for Epogen at this time. We will continue to follow closely. All labs can be repeated in the morning. Patient with multiple questions, all of which were all answered. TID: [id number] RECEIPT: [id number]
--- NOTE | 2025-09-01 22:15 | NUR ---
RE-ASSESS PT'S HR STILL =134 BPM WITH XD=673/70. ANOTHER 250CC BOLUS STARTED. WILL RE-ASSESS PT.
[2025-09-02] VITALS (7 sets, daily range): BP systolic 101–140; BP diastolic 64–88; PULSE 96–134; RESP 18–19; TEMP 98.1–99; O2SAT 93
--- NOTE | 2025-09-02 02:08 | HMCSR ---
APPROVED REPORT EXAM: Two-dimensional and M-mode echocardiogram with Doppler and color Doppler. INDICATION ICD: Shortness of breath R06.02 2D Dimensions RVDd3.7 cmLVEF(%)58.5 (>50%)LVED Vol(simp.)82.3 mL IVSd1.5 (0.7-1.1cm)FS(%)30 %LVES Vol(simp.)49.1 mL LVDd4.0 (3.8-5.6cm)LA (2D)4.4 (1.6-4.0cm)LVEF(%, simp.)40 % PWd1.5 (0.7-1.1cm)Ao Root(2D)3.2 (2.0-3.7cm)LA ESV INDEX (BP)28.00 mL/m2 LVDs2.7 (2.5-4.0cm)LVOT diam2.4 (1.8-2.4cm) IVC diam2.0 cm Deformation Strain Apical 4-14.1 % Apical 2-13.6 % Apical 3-13.9 % Global Strain-13.9 % M-Mode Dimensions EPSS0.5 cm LA (MM)4.6 (1.6-4.0cm) Ao Root(MM)3.2 (2.0-3.7cm) Aortic Valve AoV Vmax2.8 m/Simran Peak GR31.2 mmHgLVOT Vmax1.6 m/s AoV VTI0.4 mAo Mean GR13.4 mmHgLVOT VTI0.22 m MEHNAZ (VMAX)2.56 cm2AVA (VTI) 2.8 cm2 Mitral Valve MV E Vmax50.2 cm/sDECEL Time92 ms MV A Qgml942.8 cm/s E/A ratio0.5 TDI E/E' Vwwppv48.7E/E' Lateral8.2 Medial E' Peak V2.31 cm/sLateral E' Peak V6.09 cm/s Pulmonary Valve PV Vmax1.2 m/sPV VTI0.21 mPV Mean GR3.0 mmHg PV Peak GR5.5 mmHg Left Ventricle The left ventricle is normal size. No regional wall motion abnormalities noted. Severe concentric lef t ventricular hypertrophy. Left ventricular systolic function is normal, estimated LVEF is 55-60%. In determinate diastolic dysfunction. Right Ventricle The right ventricle is normal size. Right ventricle systolic function is grossly normal Atria The left atrium size is normal. The right atrium size is normal. Aortic Valve Aortic valve is trileaflet. No aortic regurgitation is present. There is no aortic valvular stenosis. Mitral Valve The mitral valve is normal in structure. Trace mitral regurgitation. There is no mitral valve stenosi s. Tricuspid Valve The tricuspid valve is normal in structure. Trace tricuspid regurgitation. RVSP is normal. Pulmonic Valve Pulmonic valve is not well visualized. Great Vessels The aortic root is normal in size. The IVC is normal in size and collapses >50% with inspiration. Pericardium There is no pericardial effusion. Other Information Quality : Technically difficult study due to body habitus Conclusion The cardiac chambers are normal in size. Severe concentric left ventricular hypertrophy. No regional wall motion abnormalities noted. Left ventricular systolic function is normal, estimated LVEF is 55-60%. Indeterminate diastolic dysfunction. Trace mitral regurgitation. Trace tricuspid regurgitation. RVSP is normal. There is no pericardial effusion. Recommend repeating an limited echocardiogram to reassess left ventricle and septal wall thickness, a s well as LVOT gradients.
[2025-09-02] MEDS ORDERED: LABE300T4 PO (05:32)
[2025-09-02 06:03] LABS: IMMATURE GRANULOCYTE ABSOLUTE 0.04 K/uL (0-1); NUCLEATED RED BLOOD CELLS 0.0 % (0.0-0.19); PLATELET COUNT (AUTO) 184 K/uL (130-400); RED BLOOD CELL COUNT(AUTO) 4.40 MIL/uL (4.50-6.20); RED CELL DISTRIBUTION WIDTH 14.4 % (11.0-15.5); WHITE BLOOD COUNT (AUTO) 13.6 K/uL (4.8-10.8)
[2025-09-02 06:25] LABS: CREATINE KINASE, TOTAL 47.0 U/L (21-232); GLOMERULAR FILTR. RATE CALC 4.0 mL/min (>90); GLUCOSE,RANDOM 130.0 mg/dL (70-105); LDL DIRECT 72.0 mg/dL (0-99); PHOSPHORUS 7.8 mg/dL (2.5-4.9); SODIUM SERUM 133.0 mmol/L (136-145); UREA NITROGEN, BLOOD 46.0 mg/dL (7-18)
--- NOTE | 2025-09-02 06:25 | NUR ---
ROUNDS PT SLEPT AT INTERVALS DURING THE SHIFT. NO DISTRESS NOTED. NO CONCERNS VERBALIZED. KEPT RESTED AND COMFORTABLE. CALL LIGHT WITHIN REACH. FOR MORE CARE.
[2025-09-02 06:33] LABS: CREATININE 14.1 mg/dL (0.5-1.3)
[2025-09-02] MEDS: NA ZIRCON CYCLOSIL(LOKELMA 10GM) PO ONE (13:03)
--- NOTE | 2025-09-02 15:38 | DS ---
Discharge Summary Hospital Course Summary: This is a 40-year-old male with a history of hypertension and end-stage renal disease (ESRD) on hemodialysis, who presented to the emergency department on 08/31/2025 with fever and chills. Initial evaluation revealed leukocytosis (WBC 15.8), left shift neutrophilia, elevated BUN/creatinine (BUN 39, creatinine 13.2), and elevated troponin (259). Imaging demonstrated fat stranding of the urinary bladder consistent with cystitis. The patient met clinical sepsis criteria. He was started on intravenous Zosyn during his hospital stay. He was evaluated by nephrology and infectious disease. He remained hemodynamically stable throughout his stay, with resolution of fever and no further chills. Laboratory values showed a downward trend in WBC (to 13.6), persistently elevated CRP (149.60), and procalcitonin (11.34). No acute events occurred during hospitalization. On 09/02/2025, prior to completion of the recommended course of inpatient manag ement, the patient elected to leave the hospital against medical advice. The risks of leaving AMA, including potential for worsening infection, sepsis, and need for ongoing dialysis and antibiotic therapy, were discussed in detail with the patient. He demonstrated understanding of these risks and signed the appropriate AMA forms. At discharge, Dr. Jo prescribed Vantin 200 mg for outpatient antibiotic therapy. Discharge instructions were provided, including recommendations to continue dialysis on his regular schedule and to seek immediate medical attention for any worsening symptoms. Loan Servicing Officer(s): Nephrology: Aadms Cuenca MD * The patient does have a history of end-stage renal disease and he will proceed with dialysis. * Continue on Thursday, Thursday, Thursday schedule. * No need for Epogen at this time. We Infectious disease: Ignacio Jo MD * Patient was prescribed Vantin 200mg. Procedure(s): [place] [id number] [place] [id number] IMAGING REPORT Signed PATIENT: ROSALVA TUTTLE JR MR#: [id number] : 1985 SEX: M AGE: 40 LOCATION: [facility] ORDER [id number] STATUS: REG REPORT#: [id number] SERVICE 1714 REASON: sepsis ORDERING PHYSICIAN: BABAR CHADWICK PAC PROCEDURE: CXR1VW - CHEST 1VW EXAM: CR Chest, 1 View. CLINICAL HISTORY: sepsis COMPARISON: None provided. FINDINGS: LUNGS: The lungs show no infiltrate or other acute finding. PLEURAL SPACES: No evidence of pleural effusion or pneumothorax. MEDIASTINUM: The cardiomediastinal silhouette is within normal limits. BONES: No aggressive appearing osseous lesion seen. IMPRESSION: No acute cardiopulmonary pathology is evident. /[place] DICTATED BY: LESLIE PHILLIPS MD DATE: 08/31/252010 ELECTRONICALLY SIGNED BY: LESLIE PHILLIPS MD DATE: 08/31/252010 [address] [place] [address] IMAGING REPORT Signed PATIENT: ROSALVA TUTTLE JR MR#: [id number] : 1985 SEX: M AGE: 40 LOCATION: [facility] ORDER 51 STATUS: REG ER REPORT#: [id number] SERVICE 49 REASON: lower abd pain ORDERING PHYSICIAN: BABAR CHADWICK PAC PROCEDURE: ABD PEL WO - CT ABDOMEN/PELVIS W/O CONTRAST EXAM: CT Abdomen and Pelvis Without IV contrast CLINICAL HISTORY: lower abd pain TECHNIQUE: Axial computed tomography images of the abdomen and pelvis without intravenous contrast. CONTRAST: No IV contrast. COMPARISON: None provided. FINDINGS: LUNG BASES: The lung bases appear clear. No pleural effusions are seen. LIVER: Fatty liver. GALLBLADDER AND BILE DUCTS: The gallbladder appears within normal limits. No radioopaque gallstones are seen. No biliary ductal dilatation is evident. PANCREAS: Unremarkable. SPLEEN: Unremarkable. ADRENAL GLANDS: Unremarkable. KIDNEYS, URETERS, AND BLADDER: Bilateral atrophic kidneys. There is no hydronephrosis or hydroureter. No urinary calculi are seen. Thick-walled urinary bladder with stranding, consistent with cystitis. STOMACH AND BOWEL: Unremarkable appearance of the stomach and bowel. No evidence of bowel obstruction. No evidence suggesting enteritis or colitis. APPENDIX: Normal appendix. PERITONEUM: No free fluid. No free air. LYMPH NODES: No lymphadenopathy is evident. REPRODUCTIVE: Unremarkable as visualized. VASCULATURE: No evidence of abdominal aortic aneurysm. BONES: No aggressive appearing osseous lesion. No acute osseous pathology evident. IMPRESSION: Thick-walled urinary bladder with stranding, consistent with cystitis. Atrophic kidneys. No hydronephrosis. No bowel obstruction or inflammation. Normal appendix. Fatty liver. /[place] DICTATED BY: LESLIE PHILLIPS MD DATE: 08/31/252112 ELECTRONICALLY SIGNED BY: LESLIE PHILLIPS MD DATE: 08/31/252112 [place] [address] IMAGING REPORT Signed PATIENT: ROSALVA TUTTLE JR MR#: [id number] : 1985 SEX: M AGE: 40 LOCATION: [facility] ORDER 1234 STATUS: ADM IN REPORT#: [id number] SERVICE 1227 REASON: SOB ORDERING PHYSICIAN: REYNA SIMMONS MD PROCEDURE: ECHO CMP - ECHO 2-D COMPLETE APPROVED REPORT EXAM: Two-dimensional and M-mode echocardiogram with Doppler and color Doppler. INDICATION ICD: Shortness of breath R06.02 2D Dimensions RVDd 3.7 cm LVEF(%) 58.5 (>50%) LVED Vol(simp.) 82.3 mL IVSd 1.5 (0.7-1.1cm) FS(%) 30 % LVES Vol(simp.) 49.1 mL LVDd 4.0 (3.8-5.6cm) LA (2D) 4.4 (1.6-4.0cm) LVEF(%, simp.) 40 % PWd 1.5 (0.7-1.1cm) Ao Root(2D) 3.2 (2.0-3.7cm) LA ESV INDEX (BP) 28.00 mL/m2 LVDs 2.7 (2.5-4.0cm) LVOT diam 2.4 (1.8-2.4cm) IVC diam 2.0 cm Deformation Strain Apical 4 -14.1 % Apical 2 -13.6 % Apical 3 -13.9 % Global Strain -13.9 % M-Mode Dimensions EPSS 0.5 cm LA (MM) 4.6 (1.6-4.0cm) Ao Root(MM) 3.2 (2.0-3.7cm) Aortic Valve AoV Vmax 2.8 m/s Ao Peak GR 31.2 mmHg LVOT Vmax 1.6 m/s AoV VTI 0.4 m Ao Mean GR 13.4 mmHg LVOT VTI 0.22 m MEHNAZ (VMAX) 2.56 cm2 MEHNAZ (VTI) 2.8 cm2 Mitral Valve MV E Vmax 50.2 cm/s DECEL Time 92 ms MV A Vmax 104.8 cm/s E/A ratio 0.5 TDI E/E' Medial 21.7 E/E' Lateral 8.2 Medial E' Peak V 2.31 cm/s Lateral E' Peak V 6.09 cm/s Pulmonary Valve PV Vmax 1.2 m/s PV VTI 0.21 m PV Mean GR 3.0 mmHg PV Peak GR 5.5 mmHg Left Ventricle The left ventricle is normal size. No regional wall motion abnormalities noted. Severe concentric left ventricular hypertrophy. Left ventricular systolic function is normal, estimated LVEF is 55-60%. Indeterminate diastolic dysfunction. Right Ventricle The right ventricle is normal size. Right ventricle systolic function is grossly normal Atria The left atrium size is normal. The right atrium size is normal. Aortic Valve Aortic valve is trileaflet. No aortic regurgitation is present. There is no aortic valvular stenosis. Mitral Valve The mitral valve is normal in structure. Trace mitral regurgitation. There is no mitral valve stenosis. Tricuspid Valve The tricuspid valve is normal in structure. Trace tricuspid regurgitation. RVSP is normal. Pulmonic Valve Pulmonic valve is not well visualized. Great Vessels The aortic root is normal in size. The IVC is normal in size and collapses >50% with inspiration. Pericardium There is no pericardial effusion. Other Information Quality : Technically difficult study due to body habitus Conclusion The cardiac chambers are normal in size. Severe concentric left ventricular hypertrophy. No regional wall motion abnormalities noted. Left ventricular systolic function is normal, estimated LVEF is 55-60%. Indeterminate diastolic dysfunction. Trace mitral regurgitation. Trace tricuspid regurgitation. RVSP is normal. There is no pericardial effusion. Recommend repeating an limited echocardiogram to reassess left ventricle and septal wall thickness, as well as LVOT gradients. DICTATED BY: CLINT CRUMP MD DATE: 09/01/25 1341 ELECTRONICALLY SIGNED BY: CLINT CRUMP MD DATE: 09/02/25 0208 Assessment/Plan: ASSESSMENT: Sepsis, POA End stage renal disease, POA Hypertroponinemia secondary to ESRD Elevated Alkaline phosphatase Discharge Instructions: ADMISSION DATE : 08/31/25 DISCHARGE DATE: 09/02/25 DISPOSITION : Home CONDITION : Stable CUSTOMER SUPPLY CHAIN ANALYST(S) : Nephrology: Adams Cuenca MD Infectious disease: Ignacio Jo MD FOLLOW UP APPOINTMENT(S) : f/u with PCP in one 2-3 days PROCEDURES: none IMAGING (S) : report attached to summary MICROBIOLOGY : none ACTIVITY : ad denia HOME MEDICATIONS : Continued Home Medications: Reported Medications Labetalol HCl (Labetalol HCl) 300 Mg Tablet, 300 MG PO BID PRN for IF SBP GREATER THAN 160, TAB 09/02/25 Sevelamer HCl (Sevelamer HCl) 800 Mg Tablet, 1600 MG TIDMEALS 02/08/24 Discontinued Reported Medications Lisinopril (Lisinopril) 10 Mg Tablet, 1 TAB PO DAILY 02/08/24 Time spent arranging discharge: 31-60 minutes ATTESTATION BY PHYSICIAN I have seen and examined the patient. I reviewed the documentation, medical decision making, and treatment plan as noted by the resident physician above. I agree with the findings and plan of care. KATY GONZALES MD [facility] MD Sep 02, 2025 15:38
--- NOTE | 2025-09-02 15:40 | NUR ---
AMA PATIENT LEFT AMA. DR. SIMMONS WAS NOTIFIED AND SIGNED AMA FORM. INFORMED PATIENT IF HE STARTS TO HAVE PAIN OR ANY TYPE OF DISCOMFORT TO GO TO ER. PATIENT SAID OKAY. I REMOVED PIV. PATIENT WAS GIVEN PRESCRIPTION LEFT BY DR. MIGUEL.
--- NOTE | 2025-09-02 20:35 | PN ---
FOLLOWUP PROGRESS NOTE SUBJECTIVE: The patient is a 40-year-old male, initially presented to the hospital with pyelonephritis. The patient was started on broad-spectrum IV antibiotics. The patient did receive dialysis yesterday without difficulty and the patient is being seen as a followup visit for all of the above. REVIEW OF SYSTEMS: CONSTITUTIONAL: He is feeling improved. HEENT: No change in vision. No change in hearing. CARDIOVASCULAR: There are no current chest pains or palpitations. PULMONARY: No shortness of breath. GASTROINTESTINAL: He is tolerating diet. MUSCULOSKELETAL: Complains of weakness. PHYSICAL EXAMINATION: VITAL SIGNS: Blood pressure is 140/88, pulse 100. Afebrile. GENERAL: Chronically ill male, young, lying in bed on the medical floor. HEENT: Head is atraumatic. Pupils are equal, round, and reactive to light. Oropharynx is without exudate. Nares clear. NECK: There is no JVP. There is no thyromegaly, no mass. CARDIOVASCULAR: Regular. There is no S3 or S4 gallop. LUNGS: Coarse with equal thoracic movement. ABDOMEN: Soft, nondistended and nontender. EXTREMITIES: Reveal no clubbing, no cyanosis. NEUROLOGICAL: He is awake. He is alert. LABORATORY DATA: Sodium 133, potassium 5.4, BUN 46, creatinine ____. White count 13,000. IMPRESSION: * Pyelonephritis. * Diabetes mellitus. * Hypertension. * End-stage renal disease. PLAN: The patient remains on the antibiotics as prescribed. Cultures are all pending. The patient does have hyperkalemia. He will be given a dose of Lokelma and labs can be repeated in the a.m. He continues on dialysis on Thursday, Thursday, and Thursday schedule. We will continue to follow closely. The patient with multiple questions, all of which were answered. TID: [id number] RECEIPT: [id number]
--- NOTE | 2025-09-02 23:56 | CONS ---
INFECTIOUS DISEASE CONSULTATION DATE OF SERVICE: 09/02/2025. REQUESTING PHYSICIAN: Dr. Fair. REASON FOR CONSULTATION: UTI sepsis and antibiotic management. HISTORY OF PRESENT ILLNESS: A 40-year-old male with end-stage renal disease, morbid obesity and hypertension, who presented to the hospital with fever and chills. The patient was found to have urinary tract infection. WBC on admission was 15,000. CT of the abdomen was done, which showed cystitis. The patient had urinalysis, which showed wbc's too numerous to count and rbc's too numerous to count. T-max was 100.9. The patient also had tachycardia, admitted to the ICU with sepsis. The patient has been started on Zosyn. Urine cultures showed mixed gurpreet. No cough. No hemoptysis or pleuritic pain. PAST MEDICAL HISTORY: * End-stage renal disease. * Obesity. * Hypertension. * Urinary tract infection. PAST SURGICAL HISTORY: AV fistula surgery. SOCIAL HISTORY: No alcohol, tobacco, or illicit drug use. FAMILY HISTORY: Noncontributory. REVIEW OF SYSTEMS: Greater than 10-systems were reviewed and negative except as documented above. PHYSICAL EXAMINATION: CONSTITUTIONAL: An elderly male, awake, not in any distress. VITAL SIGNS: Temperature 99.1, pulse 120, respiratory rate 20, blood pressure 120/77. EYES: No icterus. Pupils equal and reactive. HENT: No oral thrush seen. Moist oral mucosa. NECK: Supple. No JVD or thyromegaly. LUNGS: Good air entry. No rales, no rhonchi. CARDIOVASCULAR: S1 and S2. Regular. No murmur heard. ABDOMEN: Obese, soft, nontender. Bowel sound is present. CENTRAL NERVOUS SYSTEM: Awake. LABORATORY DATA: Sodium 133, potassium of 5.4, BUN 46, creatinine 14.1. WBC 13.7, hemoglobin 13.9, platelets 184. Urine cultures showed mixed gurpreet. RADIOLOGY: CT of the abdomen showed cystitis and atrophic kidney. ASSESSMENT: A 40-year-old male who presented with: * Fever. * Gram negative sepsis. * Urinary tract infection. * End-stage renal disease, on dialysis. * Morbid obesity. PLAN: * Continue Zosyn. * Follow up on lab cultures. * Continue pain management. * Continue antihypertensive. * Continue nutritional support. * Monitor electrolytes. * The patient will be followed up closely. TID: [id number] RECEIPT: [id number]
[2025-09-04 13:16] LABS: HEPATITIS B CORE AB TOTAL Non-Reactive (Nonreactive); HEPATITIS B SURFACE ANTIBODY Positive (Reactive)
== END 2025-09-02 16:15 | disposition left against medical advice (07) | DRG 871 ==
LOC: EDH 16:46 → EDHIP 21:04 → 3DH 09-01 00:01
PROVIDERS: ADMIT Internal Medicine; ATTEND Internal Medicine
PROC: 5A1D70Z Performance of Urinary Filtration, Intermittent, Less than 6 Hours Per Day (ICD-10-PCS; principal; 2025-09-01)
DX: A41.9 Sepsis, unspecified organism (principal); N18.6 End stage renal disease; I12.0 Hypertensive chronic kidney disease with stage 5 chronic kidney disease or end stage renal disease; N12 Tubulo-interstitial nephritis, not specified as acute or chronic; D64.9 Anemia, unspecified; E11.22 Type 2 diabetes mellitus with diabetic chronic kidney disease; N30.90 Cystitis, unspecified without hematuria; K76.0 Fatty (change of) liver, not elsewhere classified; E66.01 Morbid (severe) obesity due to excess calories; Z51.5 Encounter for palliative care; Z79.82 Long term (current) use of aspirin; Z99.2 Dependence on renal dialysis; Z68.38 Body mass index [BMI] 38.0-38.9, adult
CPT/HCPCS: 36415; 71045; 74176; 80048; 80053; 80061; 81001; 82550; 83036; 83605; 83735; 83880; 84100; 84145; 84443; 84484; 85025; 86140; 86704; 86706; 86803; 87040; 87086; 87340; 87635; 87804; 90935; 93306; 93356; 96374; 99285; G0378; J0360; J0696; J1644; J2543

== ENCOUNTER 2025-09-03 20:17 | Inpatient (IN) | payer BC, MEDICARE ==
[~2025-09-03] VITALS: Ht 177.8 cm; Wt 123.6 kg
[~2025-09-03 20:17] MED LIST changes: +LABE300T4 PO; -LISI10TA24 PO
--- NOTE | 2025-09-03 20:23 | NUR ---
UA CUP PROVIDED
--- NOTE | 2025-09-03 20:27 | NUR ---
REPORT TO La STEINBERG RN
[2025-09-03] MEDS: 0.9% NACL 250ML 250 ML IV ONE (20:42)
[2025-09-03] MEDS: ZOSYN 3.375GM +NS 50ML IV ONE (20:43)
[2025-09-03 20:58] LABS: IMMATURE GRANULOCYTE ABSOLUTE 0.03 K/uL (0-1); NUCLEATED RED BLOOD CELLS 0.0 % (0.0-0.19); PLATELET COUNT (AUTO) 151 K/uL (130-400); RED BLOOD CELL COUNT(AUTO) 4.09 MIL/uL (4.50-6.20); RED CELL DISTRIBUTION WIDTH 14.2 % (11.0-15.5); WHITE BLOOD COUNT (AUTO) 6.9 K/uL (4.8-10.8)
[2025-09-03 21:27] LABS: GLOMERULAR FILTR. RATE CALC 3.0 mL/min (>90); GLUCOSE,RANDOM 203.0 mg/dL (70-105); SODIUM SERUM 131.0 mmol/L (136-145)
[2025-09-03 21:29] LABS: CREATININE 19.1 mg/dL (0.5-1.3); UREA NITROGEN, BLOOD 80.0 mg/dL (7-18)
--- NOTE | 2025-09-03 22:10 | ERN ---
General Chief Complaint: Sepsis Stated Complaint: BURNING URINATION Time Seen by MD: 20:21 Time Seen by Midlevel: 20:21 Source: patient History of Present Illness Initial Comments Patient is a 40-year-old male with a past medical history of hypertension and end-stage renal disease on hemodialysis who presents to the emergency department for dysuria and persistent fevers. The patient was admitted into our hospital for the same complaint three days ago but he ultimately left against medical advice yesterday because he had to take care of a family matter. However, he has returned today for further evaluation given his continued symptoms. Allergies: Coded Allergies: No Allergy Information Available (Verified Allergy, Unknown, 08/10/22) No Known Allergies (Unverified Allergy, Unknown, 05/21/23) Home Meds Reported Medications Labetalol HCl (Labetalol HCl) 300 Mg Tablet, 300 MG PO BID PRN for IF SBP GREATER THAN 160, TAB 09/02/25 Sevelamer HCl (Sevelamer HCl) 800 Mg Tablet, 1600 MG TIDMEALS 02/08/24 Discontinued Reported Medications Lisinopril (Lisinopril) 10 Mg Tablet, 1 TAB PO DAILY 02/08/24 Past Medical History Past Medical History: Hypertension, Renal Disese, Renal Failure Past Surgical History: RAVA Social History Social History: Negative, Lives with family ROS Dictation CONSTITUTIONAL: Negative except for HPI HEAD/FACE: Negative except for HPI EENT: Negative except for HPI RESPIRATORY: Negative except for HPI GASTROINTESTINAL/ABDOMINAL: Negative except for HPI GENITOURINARY: Negative except for HPI MUSCULOSKELETAL: Negative except for HPI INTEGUMENTARY: Negative except for HPI NEUROLOGICAL/PSYCH: Negative except for HPI HEMATOLOGIC/LYMPHATIC: Negative except for HPI All Systems Negative, Except as noted above. 13 point review of systems assessed and all negative except for above. Physical Exam Physical Exam Dictation Vital Signs reviewed General Appearance: Alert, oriented x 3, no acute distress, well developed, nourished. Head and Face: non-traumatic. Eyes: PERRL, pink conjunctivas, eyelid no trauma, anterior chamber with arcus senilis. Ears: Pinnas intact and no signs of trauma or erythema ear canals clear and no discharge TM no erythema Nose: No discharge, no bleeding. Oropharynx: Mouth normal, tongue pink, pharynx clear,no erythema, tonsils no exudates, no abscesses noted, mucous membrane moist Neck: Supple, non-tender, no thyromegaly, no masses, no JVD, no bruits Breast:Deferred Chest:No tenderness, no crepitus, no paradoxical movement, no retractions Lungs:Clear, well-ventilated, symmetric, no rales, no wheezing, no rhonchi, no stridor, good breath sounds bilaterally Heart: Tachycardic, regular rhythm, no murmur, no gallops Vascular: no peripheral edema, Abdomen: Soft, positive bowel sounds, nondistended, no guarding, nontender, no rebound, no masses no hepatomegaly, no splenomegaly, no Lima's sign, no hernias. Rectal: Deferred Genital: Deferred Neurological: Normal speech, motor function intact, sensory function intact Musculoskeletal: Neck nontender, full range of motion, back nontender, full range of motion, Extremities: nontender, full range of motion Skin: Color pink, dry, no turgor, no rash, no lacerations, no abrasions, no contusions. Lymphatic: Deferred Results Laboratory and Microbiology Lab and Micro Result Laboratory Tests Test 09/03/25 20:36 White Blood Count 6.9 K/uL (4.8-10.8) Red Blood Count 4.09 MIL/uL (4.50-6.20) L Hemoglobin 12.8 g/dL (14.0-18.0) L Hematocrit 38.3 % (42-54) L Mean Corpuscular Volume 93.6 fL (79-99) Mean Corpuscular Hemoglobin 31.3 pg (27.0-33.0) Mean Corpuscular Hemoglobin Concent 33.4 g/dL (32.0-36.0) Red Cell Distribution Width 14.2 % (11.0-15.5) Platelet Count 151 K/uL (130-400) Mean Platelet Volume 12.2 fL (7.5-10.5) H Immature Granulocyte % (Auto) 0.4 % (0-1) Neutrophils (%) (Auto) 83.8 % (40.0-77.0) H Lymphocytes (%) (Auto) 5.7 % (21.0-51.0) L Monocytes (%) (Auto) 9.1 % (3.0-13.0) Eosinophils (%) (Auto) 0.6 % (0.0-8.0) Basophils (%) (Auto) 0.4 % (0.0-5.0) Neutrophils # (Auto) 5.8 K/uL (1.8-7.7) Lymphocytes # (Auto) 0.4 K/uL (1.0-4.8) L Monocytes # (Auto) 0.6 K/uL (0.1-1.0) Eosinophils # (Auto) 0.04 K/uL (0.00-0.70) Basophils # (Auto) 0.03 K/uL (0.00-0.20) Absolute Immature Granulocyte (auto 0.03 K/uL (0-1) Nucleated Red Blood Cells 0.0 % (0.0-0.19) Sodium Level 131 mmol/L (136-145) L Potassium Level 3.7 mmol/L (3.5-5.1) Chloride Level 84 mmol/L (101-111) *L Carbon Dioxide Level 22 mmol/L (21-32) Blood Urea Nitrogen 80 mg/dL (7-18) *H Creatinine 19.1 mg/dL (0.5-1.3) *H Glomerular Filtration Rate Calc 3 mL/min (>90) Random Glucose 203 mg/dL (70-105) H Lactic Acid Level 2.4 mmol/L (0.8-2.5) Total Calcium 8.1 mg/dL (8.5-10.1) L Magnesium Level 1.90 mg/dL (1.80-2.40) Procalcitonin > 200.00 ng/mL (0.05-0.5) H Labs Reviewed?: Yes MDM MDM: Differential diagnosis: Sepsis, urinary tract infection, pyelonephritis Rationale: Tests considered and ordered secondary to shared decision making include: Previous outside records reviewed: Old ER visits. Risk of complication and/or morbidity or mortality of patient management: None Medications-Per medication reconciliation Need for hospitalization: Patient does meet criteria for hospitalization. Need for emergency major/minor surgery: No There are no social concerns with this patient. Prescription drug management Prescriptions will include symptomatic care Patient's prior external medical records from other ER visits were reviewed by me as indicated. Prior testing and results from previous visits were reviewed. Prior tests were taken into account with medical decision making and resource utilization, independent historian/historians were used to obtain complete medical history. I independently interpreted the test that were performed, results were reviewed by me and considered findings on radiology if ordered. Medical management and examination interpretation discussions were had by me with other qualified healthcare professionals as indicated for the patient's care. ED Course Orders Procedure Category Date Status Time Cbc With Differential LAB 09/03/25 Complete 20:19 Basic Metabolic Panel LAB 09/03/25 Complete 20:19 Lactic Acid LAB 09/03/25 Complete 20:19 12 Lead Ekg Tracing- EKG 09/03/25 Logged Technical 20:19 Urinalysis Profile LAB 09/03/25 Logged 20:19 Acetaminophen 500mg PHA 09/03/25 Complete Tab (Tylenol 500mg T 20:30 Blood Cult SABINE 09/03/25 In Process 20:31 Procalcitonin LAB 09/03/25 Complete 20:31 Magnesium LAB 09/03/25 Complete 20:31 0.9% Nacl 250ml (Ns PHA 09/03/25 Complete 250ml) 21:00 Zosyn 3.375gm+Ns 50ml PHA 09/03/25 Complete (Zosyn 3.375gm+Ns 21:00 Current Medications Medications (Trade) Dose Ordered Sig/Amish Route PRN Reason Start Time Stop Time Status Last Admin Dose Admin Acetaminophen (TYLenol 500MG TAB) 1,000 mg ONCE ONCE PO 09/03/25 20:30 09/03/25 20:31 DC 09/03/25 20:42 Piperacillin Sod/ Tazobactam Sod (Zosyn 3.375gm+NS 50ml) 3.375 gm ONCE ONCE IV 09/03/25 21:00 09/03/25 21:01 DC 09/03/25 20:43 Sodium Chloride 250 ml @ 0 mls/hr ONCE ONCE IV 09/03/25 21:00 09/03/25 21:01 DC 09/03/25 20:42 Vital Signs Date Time Temp Pulse Resp B/P (MAP) Pulse Ox O2 Delivery O2 Flow Rate FiO2 09/03/25 21:40 100.8 115 16 162/105 94 Room Air* 0 21 09/03/25 20:42 100.0 09/03/25 20:34 100.0 134 17 160/95 95 Room Air* 0 09/03/25 20:19 100.9 138 20 134/112 98 Room Air DX & DISP Disposition: Inpatient Departure Impression: Primary Impression: Sepsis Additional Impressions: Urinary tract infection, End-stage renal disease on hemodialysis Condition: Stable Referrals: SELF,REFERRAL (PCP) I have reviewed the case, and I agree with, Diagnosis and Plan I performed the substantive portion of the visit. I have reviewed and personally made and approve the management plan that is documented in the note by myself or the JOSÉ MIGUEL. I acknowledge for responsibility for the patient's management plan. BABAR CHADWICK PAC Sep 03, 2025 22:10
--- NOTE | 2025-09-03 22:26 | HP ---
History of Present Illness History of Present Illness Mr. Nathan is 40 year old male that was seen and examined today on 09/03/25. on 08/31/25. Patient states he came to the emergency department with a chief complaint of fever. Onset was 08/29/2025 at 7:00 p.m.. Location is to entire body. Duration is on and off. Character is described as feeling cold. There was no alleviating factors. There was no aggravating factors. Patient reports associated chills .WBCs 15.8, left shift neutrophils 88%, BUN 39, creatinine 13.2, GFR four, troponin 259, no urinalysis was able to be obtained, flu negative, COVID negative, chest x-ray unremarkable. CT of abdomen and pelvis shows fat stranding of the urinary bladder consistent with cystitis. Additionally patient presented with a temperature of 100.9, heart rate 118 together with WBCs of 13.5 patient met clinical sepsis criteria.He was started on intravenous Zosyn during his hospital stay. He was evaluated by nephrology and infectious disease. He remained hemodynamically stable throughout his stay, with resolution of fever and no further chills. Laboratory values showed a downward trend in WBC (to 13.6), persistently elevated CRP (149.60), and procalcitonin (11.34). No acute events occurred during hospitalization. On 09/02/2025, prior to completion of the recommended course of inpatient management, the patient elected to leave the hospital against medical advice. The risks of leaving AMA, including potential for worsening infection, sepsis, and need for ongoing dialysis and antibiotic therapy, were discussed in detail with the patient. He demonstrated understanding of these risks and signed the appropriate AMA forms. At discharge, Dr. Jo prescribed Vantin 200 mg for outpatient antibiotic therapy. Discharge instructions were provided, including recommendations to continue dialysis on his regular schedule and to seek immediate medical attention for any worsening symptoms. on 09/03/25 patient returned to hospital through emergency department requesting to continue treatment. 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 Cuenca] SOCIAL HISTORY: [Negative for smoking, alcohol use, drug use. Patient lives with his parents. Patient's mom's name is ethan nathan. Patient is typically independent of all his ADLs. Patient denies difficulty pain is bills.] SURGICAL HISTORY: [RA VA] Review of Systems General: Fever, Chills; No Night Sweats, No Fatigue, No Malaise, No Appetite, No Other HEENT: No Head Aches, No Visual Changes, No Eye Pain, No Ear Pain, No Dysphasia, No Sinus Congestion, No Post Nasal Drip, No Sore Throat, No Other Pulmonary: No Dyspnea, No Cough, No Pleuritic Chest Pain, No Other Cardiovascular: No: Chest Pain, Palpitations, Orthopnea, Paroxysmal Noc. Dyspnea, Edema, Lt Headedness, Other Gastrointestinal: No: Nausea, Vomiting, Abdominal Pain, Diarrhea, Constipation, Melena, Hematochezia, Other Genitourinary: No Dysuria, No Frequency, No Incontinence, No Hematuria, No Retention, No Other Musculoskeletal: No: other, neck pain, shoulder pain, arm pain, back pain, hand pain, leg pain, foot pain Skin: No Urticaria, No Rash, No Other Neurological: No: Weakness, Numbness, Incoordination, Change in speech, Confusion, Seizures, Other Allergies: Coded Allergies: No Allergy Information Available (Verified Allergy, Unknown, 08/10/22) No Known Allergies (Unverified Allergy, Unknown, 05/21/23) Scheduled Sevelamer HCl (Sevelamer HCl), 1,600 MG TIDMEALS, (Reported) Scheduled PRN Labetalol HCl (Labetalol HCl), 300 MG PO BID PRN for IF SBP GREATER THAN 160, (Reported) Discontinued Medications Lisinopril (Lisinopril), 1 TAB PO DAILY, (Reported) Exam Vital Signs Vital Signs Date Time Temp Pulse Resp B/P (MAP) Pulse Ox O2 Delivery O2 Flow Rate FiO2 09/03/25 21:40 100.8 115 16 162/105 94 Room Air* 0 21 General Appearance: Alert, Oriented X3, Cooperative, No acute distress HEENT: Atraumatic, EOMI Respiratory: Clear to auscultation, Normal air movement, NL respiratory effort Cardiovascular: Normal S1, Normal S2, Other (tachycardia) Abdominal: No tenderness Extremities: No edema, Other (postive rava) Skin: No rashes, No breakdown, No significant lesion Neuro: Normal gait, Normal speech, Strength at 5/5 X4 ext, Cranial nerves 3-12 NL Psych/Mental Status: Mental status NL, Mood NL, Thoughts/Content NL Assessment/Plan ASSESSMENT: [ Sepsis, POA End stage renal disease, POA 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 * His CRP level is elevated and it's 149.60. * In addition to that his procalcitonin was substantially high * He is currently on Zosyn * WBC has trended down from 15.8-15.0. 09/01/25 * CT scan showed: Bilateral atrophic kidneys. There is no hydronephrosis or hydroureter. No urinary calculi are seen. Thick-walled urinary bladder with s tranding, consistent with cystitis. * Blood culture and urine culture has been sent and currently awaiting the reports. End stage renal disease * Patient's creatinine level was 13.2 During presentation and has trended up to 15.0. * Blood urea nitrogen has trended up from 39 to 46 * His serum sodium is low 131 and potassium level is 5.2. * Patient undergoes dialysis on Thursday and Thursday and is followed by Dr. Cuenca. * He has been planned for dialysis today. 09/01/25 Hypertroponinemia secondary to ESRD * Serum troponin levels are 243, 264 and 246 which could possibly due to end- stage renal disease. * Optimize volume status and dialysis schedule to reduced cardiac strain * Recognize chronic troponin elevation as baseline due to reduced renal clearance * Manage contributing factors such as hypertension Elevated Alkaline phosphatase * Patient's ALP level is 257 but AST and ALT is 15 and 19 respectively. * Hepatitis panel was ordered and awaiting the reports Supportive measures * Continue monitoring morning labs that includes CBC and BMP * DVT and GI prophylaxis as recommended * Continue monitoring the patient closely] RONNIE EDWARDSP Sep 03, 2025 22:26
[2025-09-03] MEDS ORDERED: LACTULOSE 20 GM/30 ML UDCUP PO PRN (22:30)
[2025-09-04] VITALS (7 sets, daily range): BP systolic 120–150; BP diastolic 76–96; PULSE 80–104; RESP 18–20; TEMP 97.7–98.3; O2SAT 94–99
--- NOTE | 2025-09-04 01:04 | NUR ---
REPEORT GIVEN TO NURSE MACUS, ALL QUESTIONS ANSWERED AT THIS TIME
--- NOTE | 2025-09-04 02:38 | EKG ---
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
[2025-09-04 06:24] LABS: IMMATURE GRANULOCYTE ABSOLUTE 0.03 K/uL (0-1); NUCLEATED RED BLOOD CELLS 0.0 % (0.0-0.19); PLATELET COUNT (AUTO) 130 K/uL (130-400); RED BLOOD CELL COUNT(AUTO) 3.76 MIL/uL (4.50-6.20); RED CELL DISTRIBUTION WIDTH 14.3 % (11.0-15.5); WHITE BLOOD COUNT (AUTO) 5.2 K/uL (4.8-10.8)
[2025-09-04 06:43] LABS: GLUCOSE,RANDOM 105.0 mg/dL (70-105); PHOSPHORUS 9.3 mg/dL (2.5-4.9); SODIUM SERUM 132.0 mmol/L (136-145)
[2025-09-04 06:45] LABS: GLOMERULAR FILTR. RATE CALC 3.0 mL/min (>90)
[2025-09-04 06:47] LABS: CREATININE 20.4 mg/dL (0.5-1.3); UREA NITROGEN, BLOOD 83.0 mg/dL (7-18)
[2025-09-04] MEDS: ZOSYN 3.375GM +NS 50ML IV SCH (10:05)
--- NOTE | 2025-09-04 12:46 | NUR ---
DCP:HOME Pt currently lives at home with his mom Renetta Layton [phone]. Pt does not have any DME, home health, or provider services. Pt does go to [facility]. Pt does not have a PCP at his time however states that he already has in network doctors information and will establish [place]. At [place] pt will want to go home and family can assist with transportation. Addendum: 09/04/25 at 1249 by DAVID SANTIAGO SS Amended: Links added.
[2025-09-04 13:29] LABS: APPEARANCE,URINE TURBID (CLEAR); GLUCOSE, URINE (UA) 70 mg/dL (NEGATIVE); LEUKOCYTE ESTERASE ,URINE 500 Leu/uL (NEGATIVE); NITRATE,URINE NEGATIVE (NEGATIVE); OCCULT BLOOD,URINE MODERATE (NEGATIVE)
[2025-09-04 13:37] LABS: SQUAMOUS EPITHELIAL CELL,UR MANY /HPF (0-2); WBC CLUMP MANY /HPF (0-1)
--- NOTE | 2025-09-04 15:42 | PN ---
[facility] PROGRESS NOTE Date of Service: Sep 04, 2025 Time of Service: 15:15 SUBJECTIVE: Mr. Layton is 40 year old male that was seen and examined today on 09/03/25. on 08/31/25. Patient states he came to the emergency department with a chief complaint of fever. Onset was 08/29/2025 at 7:00 p.m.. Location is to entire body. Duration is on and off. Character is described as feeling cold. There was no alleviating factors. There was no aggravating factors. Patient reports associated chills .WBCs 15.8, left shift neutrophils 88%, BUN 39, creatinine 13.2, GFR four, troponin 259, no urinalysis was able to be obtained, flu negative, COVID negative, chest x-ray unremarkable. CT of abdomen and pelvis shows fat stranding of the urinary bladder consistent with cystitis. Additionally patient presented with a temperature of 100.9, heart rate 118 together with WBCs of 13.5 patient met clinical sepsis criteria.He was started on intravenous Zosyn during his hospital stay. He was evaluated by nephrology and infectious disease. He remained hemodynamically stable throughout his stay, with resolution of fever and no further chills. Laboratory values showed a downward trend in WBC (to 13.6), persistently elevated CRP (149.60), and procalcitonin (11.34). No acute events occurred during hospitalization. On 09/02/2025, prior to completion of the recommended course of inpatient management, the patient elected to leave the hospital against medical advice. The risks of leaving A, including potential for worsening infection, sepsis, and need for ongoing dialysis and antibiotic therapy, were discussed in detail with the patient. He demonstrated understanding of these risks and signed the appropriate AMA forms. At discharge, Dr. Jo prescribed Vantin 200 mg for outpatient antibiotic therapy. Discharge instructions were provided, including recommendations to continue dialysis on his regular schedule and to seek immediate medical attention for any worsening symptoms. on 09/03/25 patient returned to hospital through emergency department requesting to continue treatment. 09/04/25 Patient was seen and examined at bedside. He is hemodynamically stable, no acute events overnight. He had complaints of low grade fever last night without chills, denies abdominal pain nausea or vomiting or sob or dizziness. He produces minimal urine output due to being on dialysis, will attempt to send a repeat urinalysis on this admission. . REVIEW OF SYSTEMS CONSTITUTIONAL: has low grade fever but denies chills, or night sweats. No unintentional weight loss reported. NEUROLOGICAL: Denies headache, amaurosis fugax, motor weakness CARDIOVASCULAR: Denies any exertional angina, dyspnea on exertion, orthopnea, paroxysmal nocturnal dyspnea PULMONARY: Denies any shortness of breath, cough, phlegm/sputum, hemoptysis, pleuritic chest pain. GASTROINTESTINAL: Denies any type of dysphagia to either liquids or solids. Denies nausea, vomiting, pyrosis, early satiety, abdominal pain, diarrhea, constipation, or changes in stool GENITOURINARY: Denies frequency, urgency, nocturia, hematuria or incontinence ENDOCRINOLOGIC: Denies polyuria, polydipsia, polyphagia or heat/cold intolerances. PHYSICAL EXAM GENERAL APPEARANCE: The patient is awake, alert, and oriented, in no acute cardiopulmonary distress. NEUROLOGICAL: Cranial nerves II-XII grossly intact. Motor is 5/5 in bilateral upper and lower extremities proximal to distal. CHEST: Normal chest expansion. No Telemetry. LUNGS: Absence of any rales, rhonchi or any wheezing. CARDIOVASCULAR: Regular. S1 and S2 normal. No appreciable rubs, murmurs or gallops. ABDOMEN: Soft, nontender, and nondistended. There is no rebound, voluntary guarding, or rigidity. : Deferred. No Curry. EXTREMITIES: Non-edematous and not cyanotic. No clubbing. Good capillary refill. SKIN: No skin breakdown. Vital Signs (last 8hr) Date Time Temp Pulse Resp B/P (MAP) Pulse Ox O2 Delivery O2 Flow Rate FiO2 09/04/25 11:55 98.1 90 18 141/96 94 Room Air 09/04/25 07:46 98.1 90 18 135/76 99 Room Air LABS: Laboratory: Test 09/04/25 13:22 09/04/25 06:20 09/03/25 20:36 Range/Units Urine Color LIGHT-ORANGE YELLOW Urine Appearance TURBID CLEAR Urine pH 5.5 5.0-8.0 Urine Specific [place] 1.013 1.001-1.031 Urine Protein 100 H NEGATIVE mg/dL Urine Glucose (UA) 70 H NEGATIVE mg/dL Urine Ketones NEGATIVE NEGATIVE mg/dL Urine Occult Blood MODERATE H NEGATIVE Urine Nitrate NEGATIVE NEGATIVE Urine Bilirubin NEGATIVE NEGATIVE mg/dL Urine Urobilinogen 0.2 0.2-1.0 mg/dL Urine Leukocyte Esterase 500 H NEGATIVE Zunilda/uL Urine RBC 11-25 H 0-1 /HPF Urine WBC TNTC H 0-1 /HPF Urine WBC Clumps (Auto) MANY 0-1 /HPF Urine Squamous Epithelial Cells MANY 0-2 /HPF Urine Non-Squamous Epithelial Cells 2-5 0-2 /HPF Urine Bacteria RARE None Seen /HPF White Blood Count 5.2 4.8-10.8 K/uL Red Blood Count 3.76 L 4.50-6.20 MIL/uL Hemoglobin 11.7 L 14.0-18.0 g/dL Hematocrit 35.4 L 42-54 % Mean Corpuscular Volume 94.1 79-99 fL Mean Corpuscular Hemoglobin 31.1 27.0-33.0 pg Mean Corpuscular Hemoglobin Concent 33.1 32.0-36.0 g/dL Red Cell Distribution Width 14.3 11.0-15.5 % Platelet Count 130 130-400 K/uL Mean Platelet Volume 11.4 H 7.5-10.5 fL Immature Granulocyte % (Auto) 0.6 0-1 % Neutrophils (%) (Auto) 72.3 40.0-77.0 % Lymphocytes (%) (Auto) 9.8 L 21.0-51.0 % Monocytes (%) (Auto) 15.9 H 3.0-13.0 % Eosinophils (%) (Auto) 0.8 0.0-8.0 % Basophils (%) (Auto) 0.6 0.0-5.0 % Neutrophils # (Auto) 3.8 1.8-7.7 K/uL Lymphocytes # (Auto) 0.5 L 1.0-4.8 K/uL Monocytes # (Auto) 0.8 0.1-1.0 K/uL Eosinophils # (Auto) 0.04 0.00-0.70 K/uL Basophils # (Auto) 0.03 0.00-0.20 K/uL Absolute Immature Granulocyte (auto 0.03 0-1 K/uL Nucleated Red Blood Cells 0.0 0.0-0.19 % Sodium Level 132 L 136-145 mmol/L Potassium Level 4.4 3.5-5.1 mmol/L Chloride Level 86 *L 101-111 mmol/L Carbon Dioxide Level 25 21-32 mmol/L Blood Urea Nitrogen 83 *H 7-18 mg/dL Creatinine 20.4 *H 0.5-1.3 mg/dL Glomerular Filtration Rate Calc 3 >90 mL/min Random Glucose 105 70-105 mg/dL Lactic Acid Level 1.2 0.8-2.5 mmol/L Total Calcium 8.2 L 8.5-10.1 mg/dL Phosphorus Level 9.3 H 2.5-4.9 mg/dL Magnesium Level 2.10 1.80-2.40 mg/dL C-Reactive Protein, Quantitative 176.00 H 0.5-3.0 mg/L Procalcitonin > 200.00 H 0.05-0.5 ng/mL Current Medications Medications (Trade) Dose Ordered Sig/Amish Route PRN Reason Start Time Stop Time Status Last Admin Dose Admin Acetaminophen (TYLenol 325MG TAB) 650 mg Q6H PRN PO TEMPERATURE GREATER THAN 101.5 09/03/25 22:30 10/03/25 22:29 Heparin Sodium (Porcine) (HEParin 5,000 UNIT VIAL) 5,000 unit BID SQ 09/04/25 09:00 10/04/25 08:59 09/04/25 10:20 5,000 UNIT Hydralazine HCl (APRESOLine 20MG INJ) 10 mg Q6H PRN IV For:SBP above 160;DBP above 90 09/03/25 22:30 10/03/25 22:29 Hydromorphone HCl (DiLAUDid 0.5MG INJ) 0.25 mg Q4H PRN IVP SEVERE PAIN (7-10) 09/03/25 22:30 09/08/25 22:29 Lactulose (Constulose 20gm/ 30ml Udcup) 20 gm BID PRN PO CONSTIPATION 09/03/25 22:30 10/03/25 22:29 Ondansetron HCl (zoFRAN 4MG INJ) 4 mg Q6H PRN IV NAUSEA/VOMITING 09/03/25 22:30 10/03/25 22:29 Pantoprazole Sodium (PROTonix 40MG TAB) 40 mg DAILY PO 09/04/25 09:00 10/04/25 08:59 09/04/25 10:04 40 MG Piperacillin Sod/ Tazobactam Sod (Zosyn 3.375gm+NS 50ml) 3.375 gm Q12H IV 09/04/25 09:00 09/14/25 08:59 09/04/25 10:05 3.375 GM Sevelamer HCl (RENAgel 800 MG TAB) 1,600 mg TIDMEALS PO 09/04/25 12:00 10/04/25 11:59 09/04/25 12:37 1,600 MG DIAGNOSTICS / RADIOLOGY: PATIENT: ROSALVA LAYTON JR MR#: [id number] : 1985 SEX: M AGE: 40 LOCATION: [facility] ORDER 51 STATUS: [facility] REPORT#: [id number] SERVICE 49 REASON: lower abd pain ORDERING PHYSICIAN: BABAR CHADWICK PAC PROCEDURE: ABD PEL WO - CT ABDOMEN/PELVIS W/O CONTRAST EXAM: CT Abdomen and Pelvis Without IV contrast CLINICAL HISTORY: lower abd pain TECHNIQUE: Axial computed tomography images of the abdomen and pelvis without intravenous contrast. CONTRAST: No IV contrast. COMPARISON: None provided. FINDINGS: LUNG BASES: The lung bases appear clear. No pleural effusions are seen. LIVER: Fatty liver. GALLBLADDER AND BILE DUCTS: The gallbladder appears within normal limits. No radioopaque gallstones are seen. No biliary ductal dilatation is evident. PANCREAS: Unremarkable. SPLEEN: Unremarkable. ADRENAL GLANDS: Unremarkable. KIDNEYS, URETERS, AND BLADDER: Bilateral atrophic kidneys. There is no hydronephrosis or hydroureter. No urinary calculi are seen. Thick-walled urinary bladder with stranding, consistent with cystitis. STOMACH AND BOWEL: Unremarkable appearance of the stomach and bowel. No evidence of bowel obstruction. No evidence suggesting enteritis or colitis. APPENDIX: Normal appendix. PERITONEUM: No free fluid. No free air. LYMPH NODES: No lymphadenopathy is evident. REPRODUCTIVE: Unremarkable as visualized. VASCULATURE: No evidence of abdominal aortic aneurysm. BONES: No aggressive appearing osseous lesion. No acute osseous pathology evident. IMPRESSION: Thick-walled urinary bladder with stranding, consistent with cystitis. Atrophic kidneys. No hydronephrosis. No bowel obstruction or inflammation. Normal appendix. Fatty liver. /[place] DICTATED BY: LESLIE PHILLIPS MD DATE: 08/31/252112 ELECTRONICALLY SIGNED BY: LESLIE PHILLIPS MD DATE: 08/31/252112 ASSESSMENT: Sepsis due to UTI, POA Complicated cystitis, POA ESRD on Hemodialysis, POA Hyperphosphatemia, POA Hyponatremia, POA Hypertension PLAN: Sepsis due to UTI * During presentation his WBC was 6.9, Pulse 138, respiratory rate 20 and temperature 100.9. * Urinalysis showed high leukocyte esterase, high red blood cells and high WBC on 08/31/25, pending urine cultures from this admission * His CRP level is elevated and it's 176, procalcitonin >200. * He is currently on Zosyn * CT scan on 09/01/25: Bilateral atrophic kidneys. There is no hydronephrosis or hydroureter. No urinary calculi are seen. Thick-walled urinary bladder with stranding, consistent with cystitis. * Blood culture and urine culture has been sent and currently awaiting the reports. End stage renal disease on Hemodialysis * Patient's creatinine level was 19.1 During presentation and has trended up to 20.4. * His serum sodium is low 132 and potassium level is 4.4. * Patient undergoes dialysis on Thursday and Thursday and is followed by Dr. Cuenca. * We will request nephrology consultation for dialysis Hyperphosphatemia * Labs show phosphorous of 9.3, will start him on his home med sevelamer Supportive measures * Continue monitoring morning labs that includes CBC and BMP * DVT and GI prophylaxis as recommended * Continue monitoring the patient closely] ATTESTATION BY PHYSICIAN I have seen and examined the patient. I reviewed the documentation, medical decision making, and treatment plan as noted by the resident physician above. I agree with the findings and plan of care. KATY GONZALES MD, NIHITHA MD Sep 04, 2025 15:42
--- NOTE | 2025-09-04 17:16 | PN ---
INFECTIOUS DISEASE PROGRESS NOTE Date of Service: Sep 04, 2025 SUBJECTIVE: This is a 40 year old male patient with medical history of hypertension, end- stage renal disease on hemodialysis and a surgical history of right fistula who presented to the emergency room with chief complaint of fever and dysuria. Patient was recently admitted to the hospital on 08/31/2025 and was found with a urinary tract infection. Patient however chose to leave against medical advice on 09/02/2025 to attend his only son's birthday. At the time patient was prescribed Vantin if cleared for discharge but patient however stated that he did not fill out the prescription. On this admission patient had a fever of 100.9, procalcitonin greater than 200.0, lactic acid of 2.4 and a CRP of 176.0. Today patient is afebrile with a temperature of 98.1 and a WBC of 5.2. We will obtain a UA and urine culture. Patient has been started on Zosyn and will continue as ordered. We will make antibiotics adjustment if necessary once cultures are updated. REVIEW OF SYSTEMS CONSTITUTIONAL: Positive for fevers. HEAD/FACE: No signs of trauma. EENT: Denies eye pain, blurred vision, double vision, or light sensitivity. RESPIRATORY: Denies shortness of breath, cough, wheezing CARDIOVASCULAR: Denies chest pain, palpitation, syncope GASTROINTESTINAL/ABDOMINAL: Denies abdominal pain, constipation, diarrhea, nausea or vomiting GENITOURINARY: Positive for Dysuria.. MUSCULOSKELETAL: Denies joint pain, tenderness, or trauma. INTEGUMENTARY: Denies rash or itchiness NEUROLOGICAL/PSYCH: Denies anxiety, depression, heat or cold intolerance. PHYSICAL EXAM EYES: Anicteric. Pupils equal and reactive. HENT: No oral thrush seen, moist Oral mucosa NECK: Supple, no JVD or thyromegaly. LUNGS: Good air entry. No rales, no rhonchi. CARDIOVASCULAR: S1, S2 regular. No murmur heard. ABDOMEN: Soft, non tender, bowel sounds present, no organomegaly CENTRAL NERVOUS SYSTEM: Awake, alert, oriented x 3. SKIN: No rashes, no swelling. LYMPHATICS: No peripheral lymphadenopathy MUSCULOSKELETAL: No joint swelling, erythema or tenderness. EXTREMITIES: No cyanosis or clubbing BACK: No deformity, no pressure ulcer. GENITOURINARY: Dysuria and frequent urination. Vital Sign (Last 12 Hours) 09/04/25 09/04/25 09/04/25 09/04/25 07:46 11:55 16:02 16:22 Temp 98.1 98.1 97.7 Pulse 90 90 81 Resp 18 18 18 B/P (MAP) 135/76 141/96 140/88 Pulse Ox 99 94 93 99 O2 Delivery Room Air Room Air Room Air Room Air* O2 Flow Rate 0 FiO2 21 LABS: Laboratory: Test 09/04/25 13:22 09/04/25 06:20 09/03/25 20:36 Range/Units Urine Color LIGHT-ORANGE YELLOW Urine Appearance TURBID CLEAR Urine pH 5.5 5.0-8.0 Urine Specific [place] 1.013 1.001-1.031 Urine Protein 100 H NEGATIVE mg/dL Urine Glucose (UA) 70 H NEGATIVE mg/dL Urine Ketones NEGATIVE NEGATIVE mg/dL Urine Occult Blood MODERATE H NEGATIVE Urine Nitrate NEGATIVE NEGATIVE Urine Bilirubin NEGATIVE NEGATIVE mg/dL Urine Urobilinogen 0.2 0.2-1.0 mg/dL Urine Leukocyte Esterase 500 H NEGATIVE Zunilda/uL Urine RBC 11-25 H 0-1 /HPF Urine WBC TNTC H 0-1 /HPF Urine WBC Clumps (Auto) MANY 0-1 /HPF Urine Squamous Epithelial Cells MANY 0-2 /HPF Urine Non-Squamous Epithelial Cells 2-5 0-2 /HPF Urine Bacteria RARE None Seen /HPF White Blood Count 5.2 4.8-10.8 K/uL Red Blood Count 3.76 L 4.50-6.20 MIL/uL Hemoglobin 11.7 L 14.0-18.0 g/dL Hematocrit 35.4 L 42-54 % Mean Corpuscular Volume 94.1 79-99 fL Mean Corpuscular Hemoglobin 31.1 27.0-33.0 pg Mean Corpuscular Hemoglobin Concent 33.1 32.0-36.0 g/dL Red Cell Distribution Width 14.3 11.0-15.5 % Platelet Count 130 130-400 K/uL Mean Platelet Volume 11.4 H 7.5-10.5 fL Immature Granulocyte % (Auto) 0.6 0-1 % Neutrophils (%) (Auto) 72.3 40.0-77.0 % Lymphocytes (%) (Auto) 9.8 L 21.0-51.0 % Monocytes (%) (Auto) 15.9 H 3.0-13.0 % Eosinophils (%) (Auto) 0.8 0.0-8.0 % Basophils (%) (Auto) 0.6 0.0-5.0 % Neutrophils # (Auto) 3.8 1.8-7.7 K/uL Lymphocytes # (Auto) 0.5 L 1.0-4.8 K/uL Monocytes # (Auto) 0.8 0.1-1.0 K/uL Eosinophils # (Auto) 0.04 0.00-0.70 K/uL Basophils # (Auto) 0.03 0.00-0.20 K/uL Absolute Immature Granulocyte (auto 0.03 0-1 K/uL Nucleated Red Blood Cells 0.0 0.0-0.19 % Sodium Level 132 L 136-145 mmol/L Potassium Level 4.4 3.5-5.1 mmol/L Chloride Level 86 *L 101-111 mmol/L Carbon Dioxide Level 25 21-32 mmol/L Blood Urea Nitrogen 83 *H 7-18 mg/dL Creatinine 20.4 *H 0.5-1.3 mg/dL Glomerular Filtration Rate Calc 3 >90 mL/min Random Glucose 105 70-105 mg/dL Lactic Acid Level 1.2 0.8-2.5 mmol/L Total Calcium 8.2 L 8.5-10.1 mg/dL Phosphorus Level 9.3 H 2.5-4.9 mg/dL Magnesium Level 2.10 1.80-2.40 mg/dL C-Reactive Protein, Quantitative 176.00 H 0.5-3.0 mg/L Procalcitonin > 200.00 H 0.05-0.5 ng/mL ASSESSMENT: Urinary tract infection. Sepsis. End-stage renal disease, on dialysis. Hypertension. PLAN: Continue Zosyn IV. Collect UA and urine culture today. We will follow up on the culture results. Continue dialysis as recommended by railroad engineer. We will monitor electrolytes. Thank you for allowing ID to participate in the care of this patient. This case was reviewed and discussed with my supervising physician Dr. Miguel and the above assessment and plan was formulated and agreed upon. ATTESTATION BY PHYSICIAN I have seen and examined the patient. I reviewed the documentation, medical decision making, and treatment plan as noted by the mid-level provider above. I agree with the findings and plan of care. KAR MIGUEL MD, MIRTA L [facility] Sep 04, 2025 17:16
--- NOTE | 2025-09-04 23:09 | CONS ---
REASON FOR CONSULTATION: Sepsis. HISTORY OF PRESENT ILLNESS: A 40-year-old male who was just recently discharged from the hospital. The patient with history of hypertension and end-stage renal disease. He initially presented to the hospital complaining of significant fevers at home. The patient was found to have sepsis as well as cystitis. The patient was started on broad-spectrum IV antibiotics. The patient was discharged and returns for very similar issues. He has a history of end-stage renal disease on dialysis 3 times per week and the patient is being seen in consultation for all of the above. PAST HISTORY: Hypertension, end-stage renal disease. SURGICAL HISTORY: IV access. SOCIAL HISTORY: He lives independently. There is no tobacco use. FAMILY HISTORY: There is no renal disease in the family. ALLERGIES: There are no allergies. MEDICATIONS: Noted. REVIEW OF SYSTEMS: GENERAL: The patient is feeling weak and tired. HEENT: No change in vision. No change in hearing. CARDIOVASCULAR: There are no current chest pains or palpitations. PULMONARY: There is no shortness of breath. GASTROINTESTINAL: The patient is tolerating a diet. MUSCULOSKELETAL: Complains of weakness. NEUROLOGIC: No seizures or focal deficits. PSYCH: No history of recent psychosis. ENDOCRINE: No thyroid disease. HEME: History of anemia. No history of malignancy. PHYSICAL EXAMINATION: VITAL SIGNS: Blood pressure 135/76, pulse in the 90s. T-max is 101 degrees Fahrenheit. GENERAL: He is a chronically ill male, young, lying in bed on the medical floor. HEENT: Head is atraumatic. Pupils are equal, round and reactive to light. Oropharynx is without exudate. Nares clear. NECK: There is no JVP. There is no thyromegaly. No masses. CARDIOVASCULAR: Regular. There is no S3 or S4 gallop. LUNGS: Coarse with equal thoracic movement. ABDOMEN: Soft, nondistended, and nontender. EXTREMITIES: Reveal no clubbing, no cyanosis. NEUROLOGICAL: He is awake. He is alert. He is oriented. SKIN: Reveals no rash or nodules. BACK: There is no CVA tenderness. No back deformities. LABORATORY DATA: Hemoglobin 35, white blood cell count is 5000, BUN 83, creatinine 20. IMPRESSION: * Sepsis. * Hypertension. * Anemia. * ESRD. PLAN: The patient remains on the broad spectrum IV antibiotics. Culture results are all pending. The patient continued dialysis on a Thursday, Thursday, Thursday schedule. The patient with significant hyperphosphatemia. He will be resumed on his phosphate binders. There is no need for Epogen at this time. Blood pressure medications have been resumed. We will continue with all the medications as prescribed. The labs will be repeated in the morning. TID: [id number] RECEIPT: [id number]
[2025-09-05] VITALS (21 sets, daily range): BP systolic 134–171; BP diastolic 84–109; PULSE 65–99; RESP 16–18; TEMP 97.3–99.2; O2SAT 97
[2025-09-05 05:10] LABS: IMMATURE GRANULOCYTE ABSOLUTE 0.04 K/uL (0-1); NUCLEATED RED BLOOD CELLS 0.0 % (0.0-0.19); PLATELET COUNT (AUTO) 138 K/uL (130-400); RED BLOOD CELL COUNT(AUTO) 3.42 MIL/uL (4.50-6.20); RED CELL DISTRIBUTION WIDTH 14.0 % (11.0-15.5); WHITE BLOOD COUNT (AUTO) 4.6 K/uL (4.8-10.8)
[2025-09-05 05:29] LABS: GLUCOSE,RANDOM 92.0 mg/dL (70-105); SODIUM SERUM 132.0 mmol/L (136-145)
[2025-09-05 05:32] LABS: GLOMERULAR FILTR. RATE CALC 2.0 mL/min (>90)
[2025-09-05 05:34] LABS: CREATININE 22.8 mg/dL (0.5-1.3); UREA NITROGEN, BLOOD 97.0 mg/dL (7-18)
--- NOTE | 2025-09-05 10:58 | PN ---
DIALYSIS NOTE SUBJECTIVE: The patient was seen and evaluated on hemodialysis, prescription noted. OBJECTIVE: VITAL SIGNS: Blood pressure 134/93. CARDIOVASCULAR: Regular. LUNGS: Coarse. IMPRESSION: End-stage renal disease. PLAN: The patient will continue with maximal ultrafiltration as blood pressure allows. The patient remains on the antibiotics. Once he is discharged, he will follow up at the dialysis unit. TID: [id number] RECEIPT: [id number]
--- NOTE | 2025-09-05 14:22 | PN ---
[facility] PROGRESS NOTE Date of Service: Sep 05, 2025 Time of Service: 14:07 SUBJECTIVE: Mr. Layton is 40 year old male that was seen and examined today on 09/03/25. on 08/31/25. Patient states he came to the emergency department with a chief complaint of fever. Onset was 08/29/2025 at 7:00 p.m.. Location is to entire body. Duration is on and off. Character is described as feeling cold. There was no alleviating factors. There was no aggravating factors. Patient reports associated chills .WBCs 15.8, left shift neutrophils 88%, BUN 39, creatinine 13.2, GFR four, troponin 259, no urinalysis was able to be obtained, flu negative, COVID negative, chest x-ray unremarkable. CT of abdomen and pelvis shows fat stranding of the urinary bladder consistent with cystitis. Additionally patient presented with a temperature of 100.9, heart rate 118 together with WBCs of 13.5 patient met clinical sepsis criteria.He was started on intravenous Zosyn during his hospital stay. He was evaluated by nephrology and infectious disease. He remained hemodynamically stable throughout his stay, with resolution of fever and no further chills. Laboratory values showed a downward trend in WBC (to 13.6), persistently elevated CRP (149.60), and procalcitonin (11.34). No acute events occurred during hospitalization. On 09/02/2025, prior to completion of the recommended course of inpatient management, the patient elected to leave the hospital against medical advice. The risks of leaving [facility], including potential for worsening infection, sepsis, and need for ongoing dialysis and antibiotic therapy, were discussed in detail with the patient. He demonstrated understanding of these risks and signed the appropriate AMA forms. At discharge, Dr. Jo prescribed Vantin 200 mg for outpatient antibiotic therapy. Discharge instructions were provided, including recommendations to continue dialysis on his regular schedule and to seek immediate medical attention for any worsening symptoms. on 09/03/25 patient returned to hospital through emergency department requesting to continue treatment. 09/04/25 Patient was seen and examined at bedside. He is hemodynamically stable, no acute events overnight. He had complaints of low grade fever last night without chills, denies abdominal pain nausea or vomiting or sob or dizziness. He produces minimal urine output due to being on dialysis, will attempt to send a repeat urinalysis on this admission. 09/05/25: Patient was seen and examined at bedside. Patient reports hat he is feeling well. He is hemodynamically stable, no acute events overnight. Patient mentioned that he doesn't have burning micturition anymore. Patient denies fever, chills. Patient is scheduled for dialysis tomorrow. Pending urine culture results. PRocal - >200, CRP-126.70 REVIEW OF SYSTEMS CONSTITUTIONAL: has low grade fever but denies chills, or night sweats. No unintentional weight loss reported. NEUROLOGICAL: Denies headache, amaurosis fugax, motor weakness CARDIOVASCULAR: Denies any exertional angina, dyspnea on exertion, orthopnea, paroxysmal nocturnal dyspnea PULMONARY: Denies any shortness of breath, cough, phlegm/sputum, hemoptysis, pleuritic chest pain. GASTROINTESTINAL: Denies any type of dysphagia to either liquids or solids. Denies nausea, vomiting, pyrosis, early satiety, abdominal pain, diarrhea, constipation, or changes in stool GENITOURINARY: Denies frequency, urgency, nocturia, hematuria or incontinence ENDOCRINOLOGIC: Denies polyuria, polydipsia, polyphagia or heat/cold intolerances. PHYSICAL EXAM GENERAL APPEARANCE: The patient is awake, alert, and oriented, in no acute cardiopulmonary distress. NEUROLOGICAL: Cranial nerves II-XII grossly intact. Motor is 5/5 in bilateral upper and lower extremities proximal to distal. CHEST: Normal chest expansion. No Telemetry. LUNGS: Absence of any rales, rhonchi or any wheezing. CARDIOVASCULAR: Regular. S1 and S2 normal. No appreciable rubs, murmurs or gallops. ABDOMEN: Soft, nontender, and nondistended. There is no rebound, voluntary guarding, or rigidity. : Deferred. No Curry. EXTREMITIES: Non-edematous and not cyanotic. No clubbing. Good capillary refill. SKIN: No skin breakdown. Vital Signs (last 8hr) Date Time Temp Pulse Resp B/P (MAP) Pulse Ox O2 Delivery O2 Flow Rate FiO2 09/05/25 11:34 98.2 80 18 159/87 96 Room Air 09/05/25 08:05 98.2 75 18 134/93 95 Room Air LABS: Laboratory: Test 09/05/25 04:59 09/04/25 13:22 09/04/25 06:20 Range/Units White Blood Count 4.6 L 4.8-10.8 K/uL Red Blood Count 3.42 L 4.50-6.20 MIL/uL Hemoglobin 10.6 L 14.0-18.0 g/dL Hematocrit 32.0 L 42-54 % Mean Corpuscular Volume 93.6 79-99 fL Mean Corpuscular Hemoglobin 31.0 27.0-33.0 pg Mean Corpuscular Hemoglobin Concent 33.1 32.0-36.0 g/dL Red Cell Distribution Width 14.0 11.0-15.5 % Platelet Count 138 130-400 K/uL Mean Platelet Volume 11.7 H 7.5-10.5 fL Immature Granulocyte % (Auto) 0.9 0-1 % Neutrophils (%) (Auto) 61.8 40.0-77.0 % Lymphocytes (%) (Auto) 16.2 L 21.0-51.0 % Monocytes (%) (Auto) 17.8 H 3.0-13.0 % Eosinophils (%) (Auto) 2.0 0.0-8.0 % Basophils (%) (Auto) 1.3 0.0-5.0 % Neutrophils # (Auto) 2.8 1.8-7.7 K/uL Lymphocytes # (Auto) 0.7 L 1.0-4.8 K/uL Monocytes # (Auto) 0.8 0.1-1.0 K/uL Eosinophils # (Auto) 0.09 0.00-0.70 K/uL Basophils # (Auto) 0.06 0.00-0.20 K/uL Absolute Immature Granulocyte (auto 0.04 0-1 K/uL Nucleated Red Blood Cells 0.0 0.0-0.19 % Sodium Level 132 L 136-145 mmol/L Potassium Level 4.5 3.5-5.1 mmol/L Chloride Level 87 *L 101-111 mmol/L Carbon Dioxide Level 23 21-32 mmol/L Blood Urea Nitrogen 97 *H 7-18 mg/dL Creatinine 22.8 *H 0.5-1.3 mg/dL Glomerular Filtration Rate Calc 2 >90 mL/min Random Glucose 92 70-105 mg/dL Total Calcium 7.4 L 8.5-10.1 mg/dL C-Reactive Protein, Quantitative 126.70 H 0.5-3.0 mg/L Procalcitonin > 200.00 H 0.05-0.5 ng/mL Urine Color LIGHT-ORANGE YELLOW Urine Appearance TURBID CLEAR Urine pH 5.5 5.0-8.0 Urine Specific [place] 1.013 1.001-1.031 Urine Protein 100 H NEGATIVE mg/dL Urine Glucose (UA) 70 H NEGATIVE mg/dL Urine Ketones NEGATIVE NEGATIVE mg/dL Urine Occult Blood MODERATE H NEGATIVE Urine Nitrate NEGATIVE NEGATIVE Urine Bilirubin NEGATIVE NEGATIVE mg/dL Urine Urobilinogen 0.2 0.2-1.0 mg/dL Urine Leukocyte Esterase 500 H NEGATIVE Zunilda/uL Urine RBC 11-25 H 0-1 /HPF Urine WBC TNTC H 0-1 /HPF Urine WBC Clumps (Auto) MANY 0-1 /HPF Urine Squamous Epithelial Cells MANY 0-2 /HPF Urine Non-Squamous Epithelial Cells 2-5 0-2 /HPF Urine Bacteria RARE None Seen /HPF Lactic Acid Level 1.2 0.8-2.5 mmol/L Phosphorus Level 9.3 H 2.5-4.9 mg/dL Magnesium Level 2.10 1.80-2.40 mg/dL Current Medications Medications (Trade) Dose Ordered Sig/Amish Route PRN Reason Start Time Stop Time Status Last Admin Dose Admin Acetaminophen (TYLenol 325MG TAB) 650 mg Q6H PRN PO TEMPERATURE GREATER THAN 101.5 09/03/25 22:30 10/03/25 22:29 Heparin Sodium (Porcine) (HEParin 5,000 UNIT VIAL) 5,000 unit BID SQ 09/04/25 09:00 10/04/25 08:59 09/05/25 09:35 5,000 UNIT Hydralazine HCl (APRESOLine 20MG INJ) 10 mg Q6H PRN IV For:SBP above 160;DBP above 90 09/03/25 22:30 10/03/25 22:29 Hydromorphone HCl (DiLAUDid 0.5MG INJ) 0.25 mg Q4H PRN IVP SEVERE PAIN (7-10) 09/03/25 22:30 09/08/25 22:29 Lactulose (Constulose 20gm/ 30ml Udcup) 20 gm BID PRN PO CONSTIPATION 09/03/25 22:30 10/03/25 22:29 Ondansetron HCl (zoFRAN 4MG INJ) 4 mg Q6H PRN IV NAUSEA/VOMITING 09/03/25 22:30 10/03/25 22:29 Pantoprazole Sodium (PROTonix 40MG TAB) 40 mg DAILY PO 09/04/25 09:00 10/04/25 08:59 09/05/25 09:35 40 MG Piperacillin Sod/ Tazobactam Sod (Zosyn 3.375gm+NS 50ml) 3.375 gm Q12H IV 09/04/25 09:00 09/14/25 08:59 09/05/25 09:35 3.375 GM Sevelamer HCl (RENAgel 800 MG TAB) 1,600 mg TIDMEALS PO 09/04/25 12:00 10/04/25 11:59 09/05/25 12:28 1,600 MG Sodium Chloride 1,000 ml @ 0 mls/hr ONCE IV 09/05/25 12:30 10/05/25 12:29 DIAGNOSTICS / RADIOLOGY: [address] [address] IMAGING REPORT Signed PATIENT: ROSALVA LAYTON JR MR#: [id number] : 1985 SEX: M AGE: 40 LOCATION: [facility] ORDER 1234 STATUS: ADM IN REPORT#: [id number] SERVICE 1227 REASON: SOB ORDERING PHYSICIAN: REYNA SIMMONS MD PROCEDURE: ECHO CMP - ECHO 2-D COMPLETE APPROVED REPORT EXAM: Two-dimensional and M-mode echocardiogram with Doppler and color Doppler. INDICATION ICD: Shortness of breath R06.02 2D Dimensions RVDd 3.7 cm LVEF(%) 58.5 (>50%) LVED Vol(simp.) 82.3 mL IVSd 1.5 (0.7-1.1cm) FS(%) 30 % LVES Vol(simp.) 49.1 mL LVDd 4.0 (3.8-5.6cm) LA (2D) 4.4 (1.6-4.0cm) LVEF(%, simp.) 40 % PWd 1.5 (0.7-1.1cm) Ao Root(2D) 3.2 (2.0-3.7cm) LA ESV INDEX (BP) 28.00 mL/m2 LVDs 2.7 (2.5-4.0cm) LVOT diam 2.4 (1.8-2.4cm) IVC diam 2.0 cm Deformation Strain Apical 4 -14.1 % Apical 2 -13.6 % Apical 3 -13.9 % Global Strain -13.9 % M-Mode Dimensions EPSS 0.5 cm LA (MM) 4.6 (1.6-4.0cm) Ao Root(MM) 3.2 (2.0-3.7cm) Aortic Valve AoV Vmax 2.8 m/s Ao Peak GR 31.2 mmHg LVOT Vmax 1.6 m/s AoV VTI 0.4 m Ao Mean GR 13.4 mmHg LVOT VTI 0.22 m MEHNAZ (VMAX) 2.56 cm2 MEHNAZ (VTI) 2.8 cm2 Mitral Valve MV E Vmax 50.2 cm/s DECEL Time 92 ms MV A Vmax 104.8 cm/s E/A ratio 0.5 TDI E/E' Medial 21.7 E/E' Lateral 8.2 Medial E' Peak V 2.31 cm/s Lateral E' Peak V 6.09 cm/s Pulmonary Valve PV Vmax 1.2 m/s PV VTI 0.21 m PV Mean GR 3.0 mmHg PV Peak GR 5.5 mmHg Left Ventricle The left ventricle is normal size. No regional wall motion abnormalities noted. Severe concentric left ventricular hypertrophy. Left ventricular systolic function is normal, estimated LVEF is 55-60%. Indeterminate diastolic dysfunction. Right Ventricle The right ventricle is normal size. Right ventricle systolic function is grossly normal Atria The left atrium size is normal. The right atrium size is normal. Aortic Valve Aortic valve is trileaflet. No aortic regurgitation is present. There is no aortic valvular stenosis. Mitral Valve The mitral valve is normal in structure. Trace mitral regurgitation. There is no mitral valve stenosis. Tricuspid Valve The tricuspid valve is normal in structure. Trace tricuspid regurgitation. RVSP is normal. Pulmonic Valve Pulmonic valve is not well visualized. Great Vessels The aortic root is normal in size. The IVC is normal in size and collapses >50% with inspiration. Pericardium There is no pericardial effusion. Other Information Quality : Technically difficult study due to body habitus Conclusion The cardiac chambers are normal in size. Severe concentric left ventricular hypertrophy. No regional wall motion abnormalities noted. Left ventricular systolic function is normal, estimated LVEF is 55-60%. Indeterminate diastolic dysfunction. Trace mitral regurgitation. Trace tricuspid regurgitation. RVSP is normal. There is no pericardial effusion. Recommend repeating an limited echocardiogram to reassess left ventricle and septal wall thickness, as well as LVOT gradients. DICTATED BY: CLINT CRUMP MD DATE: 09/01/25 1341 ELECTRONICALLY SIGNED BY: CLINT CRUMP MD DATE: 09/02/[address] [address] IMAGING REPORT Signed PATIENT: ROSALVA LAYTON JR MR#: [id number] : 1985 SEX: M AGE: 40 LOCATION: [facility] ORDER 51 STATUS: [facility] REPORT#: [id number] SERVICE 49 REASON: lower abd pain ORDERING PHYSICIAN: BABAR CHADWICK PAC PROCEDURE: ABD PEL WO - CT ABDOMEN/PELVIS W/O CONTRAST EXAM: CT Abdomen and Pelvis Without IV contrast CLINICAL HISTORY: lower abd pain TECHNIQUE: Axial computed tomography images of the abdomen and pelvis without intravenous contrast. CONTRAST: No IV contrast. COMPARISON: None provided. FINDINGS: LUNG BASES: The lung bases appear clear. No pleural effusions are seen. LIVER: Fatty liver. GALLBLADDER AND BILE DUCTS: The gallbladder appears within normal limits. No radioopaque gallstones are seen. No biliary ductal dilatation is evident. PANCREAS: Unremarkable. SPLEEN: Unremarkable. ADRENAL GLANDS: Unremarkable. KIDNEYS, URETERS, AND BLADDER: Bilateral atrophic kidneys. There is no hydronephrosis or hydroureter. No urinary calculi are seen. Thick-walled urinary bladder with stranding, consistent with cystitis. STOMACH AND BOWEL: Unremarkable appearance of the stomach and bowel. No evidence of bowel obstruction. No evidence suggesting enteritis or colitis. APPENDIX: Normal appendix. PERITONEUM: No free fluid. No free air. LYMPH NODES: No lymphadenopathy is evident. REPRODUCTIVE: Unremarkable as visualized. VASCULATURE: No evidence of abdominal aortic aneurysm. BONES: No aggressive appearing osseous lesion. No acute osseous pathology evident. IMPRESSION: Thick-walled urinary bladder with stranding, consistent with cystitis. Atrophic kidneys. No hydronephrosis. No bowel obstruction or inflammation. Normal appendix. Fatty liver. /[place] DICTATED BY: LESLIE PHILLIPS MD DATE: 08/31/252112 ELECTRONICALLY SIGNED BY: LESLIE PHILLIPS MD DATE: 08/31/252112 ASSESSMENT: Sepsis due to UTI, POA Complicated cystitis, POA ESRD on Hemodialysis, POA Hyperphosphatemia, POA Hyponatremia, POA Hypertension PLAN: Sepsis due to UTI * During presentation his WBC was 6.9, Pulse 138, respiratory rate 20 and temper ature 100.9. * Urinalysis showed high leukocyte esterase, high red blood cells and high WBC on 08/31/25, pending urine cultures from this admission * His CRP level trends 176>126 , procalcitonin >200. WBC - 4.6 * He is currently on Zosyn * Pending urine culture results * CT scan on 09/01/25: Bilateral atrophic kidneys. There is no hydronephrosis or hydroureter. No urinary calculi are seen. Thick-walled urinary bladder with stranding, consistent with cystitis. * Blood culture and urine culture has been sent and currently awaiting the reports. End stage renal disease on Hemodialysis * Patient's creatinine level was 19.1 During presentation and has trended up to 20.4. today it is 22.8 * His serum sodium today 132 and potassium level is 4.5. * Patient undergoes dialysis on Thursday and Thursday and is followed by Dr. Cuenca. * Nephrology was consulted will follow their recommendations. * Patient is scheduled for Dialysis tomorrow. Hyperphosphatemia * Labs show phosphorous of 9.3, Patient was started on sevelamer 1600mg Supportive measures * Continue monitoring morning labs that includes CBC and BMP * DVT and GI prophylaxis as recommended * Continue monitoring the patient closely] ATTESTATION BY PHYSICIAN I have seen and examined the patient. I reviewed the documentation, medical decision making, and treatment plan as noted by the resident physician above. I agree with the findings and plan of care. KATY GONZALES MD, SHAJI MD Sep 05, 2025 14:21
[2025-09-05] MEDS: 0.9%NACL 1000ML 1,000 ML IV SCH (17:04)
--- NOTE | 2025-09-05 21:47 | PN ---
INFECTIOUS DISEASE PROGRESS NOTE Date of Service: Sep 05, 2025 SUBJECTIVE: This is a 40 year old male patient who was seen at bedside in room 327. During visit today patient was being set up for dialysis session. Remains afebrile, temperature is 98.2. Continues on Zosyn for UTI. We will follow up on the urine culture results. No other issues reported by nursing. PHYSICAL EXAM EYES: Anicteric. Pupils equal and reactive. HENT: No oral thrush seen, moist Oral mucosa NECK: Supple, no JVD or thyromegaly. LUNGS: Good air entry. No rales, no rhonchi. CARDIOVASCULAR: S1, S2 regular. No murmur heard. ABDOMEN: Soft, non tender, bowel sounds present, no organomegaly CENTRAL NERVOUS SYSTEM: Awake, alert, oriented x 3. SKIN: No rashes, no swelling. LYMPHATICS: No peripheral lymphadenopathy MUSCULOSKELETAL: No joint swelling, erythema or tenderness. EXTREMITIES: No cyanosis or clubbing BACK: No deformity, no pressure ulcer. GENITOURINARY: Dysuria and frequent urination. Vital Sign (Last 12 Hours) 09/05/25 09/05/25 09/05/25 09/05/25 11:34 13:15 13:45 14:00 Temp 98.2 97.9 97.9 Pulse 80 80 77 68 Resp 18 16 16 16 B/P (MAP) 159/87 146/99 170/104 156/104 Pulse Ox 96 O2 Delivery Room Air Room Air Room Air Room Air 09/05/25 09/05/25 09/05/25 09/05/25 14:15 14:30 14:45 15:00 Pulse 65 66 74 74 Resp 16 16 16 16 B/P (MAP) 160/109 171/105 162/102 155/106 O2 Delivery Room Air Room Air Room Air Room Air 09/05/25 09/05/25 09/05/25 09/05/25 15:08 15:15 15:30 15:45 Pulse 67 74 69 Resp 16 16 16 B/P (MAP) 148/100 146/103 155/107 O2 Delivery Room Air* Room Air Room Air Room Air O2 Flow Rate 0 FiO2 21 09/05/25 09/05/25 09/05/25 09/05/25 16:00 16:00 16:15 16:30 Temp 98.2 Pulse 75 74 79 84 Resp 16 18 16 16 B/P (MAP) 166/105 146/103 143/105 143/102 Pulse Ox 94 O2 Delivery Room Air Room Air Room Air Room Air 09/05/25 09/05/25 09/05/25 16:45 17:00 20:00 Temp 97.3 97.3 98.8 Pulse 81 83 99 Resp 16 16 18 B/P (MAP) 148/99 155/102 134/106 Pulse Ox 97 O2 Delivery Room Air Room Air Room Air Intake & Output (last 24hrs) 09/04/25 09/04/25 09/05/25 15:00 23:00 07:00 Intake Total 240 ml 240 ml 50.0 ml Output Total 0 ml Balance 240 ml 240 ml 50.0 ml LABS: Laboratory: Test 09/05/25 04:59 09/04/25 13:22 09/04/25 06:20 Range/Units White Blood Count 4.6 L 4.8-10.8 K/uL Red Blood Count 3.42 L 4.50-6.20 MIL/uL Hemoglobin 10.6 L 14.0-18.0 g/dL Hematocrit 32.0 L 42-54 % Mean Corpuscular Volume 93.6 79-99 fL Mean Corpuscular Hemoglobin 31.0 27.0-33.0 pg Mean Corpuscular Hemoglobin Concent 33.1 32.0-36.0 g/dL Red Cell Distribution Width 14.0 11.0-15.5 % Platelet Count 138 130-400 K/uL Mean Platelet Volume 11.7 H 7.5-10.5 fL Immature Granulocyte % (Auto) 0.9 0-1 % Neutrophils (%) (Auto) 61.8 40.0-77.0 % Lymphocytes (%) (Auto) 16.2 L 21.0-51.0 % Monocytes (%) (Auto) 17.8 H 3.0-13.0 % Eosinophils (%) (Auto) 2.0 0.0-8.0 % Basophils (%) (Auto) 1.3 0.0-5.0 % Neutrophils # (Auto) 2.8 1.8-7.7 K/uL Lymphocytes # (Auto) 0.7 L 1.0-4.8 K/uL Monocytes # (Auto) 0.8 0.1-1.0 K/uL Eosinophils # (Auto) 0.09 0.00-0.70 K/uL Basophils # (Auto) 0.06 0.00-0.20 K/uL Absolute Immature Granulocyte (auto 0.04 0-1 K/uL Nucleated Red Blood Cells 0.0 0.0-0.19 % Sodium Level 132 L 136-145 mmol/L Potassium Level 4.5 3.5-5.1 mmol/L Chloride Level 87 *L 101-111 mmol/L Carbon Dioxide Level 23 21-32 mmol/L Blood Urea Nitrogen 97 *H 7-18 mg/dL Creatinine 22.8 *H 0.5-1.3 mg/dL Glomerular Filtration Rate Calc 2 >90 mL/min Random Glucose 92 70-105 mg/dL Total Calcium 7.4 L 8.5-10.1 mg/dL C-Reactive Protein, Quantitative 126.70 H 0.5-3.0 mg/L Procalcitonin > 200.00 H 0.05-0.5 ng/mL Urine Color LIGHT-ORANGE YELLOW Urine Appearance TURBID CLEAR Urine pH 5.5 5.0-8.0 Urine Specific [place] 1.013 1.001-1.031 Urine Protein 100 H NEGATIVE mg/dL Urine Glucose (UA) 70 H NEGATIVE mg/dL Urine Ketones NEGATIVE NEGATIVE mg/dL Urine Occult Blood MODERATE H NEGATIVE Urine Nitrate NEGATIVE NEGATIVE Urine Bilirubin NEGATIVE NEGATIVE mg/dL Urine Urobilinogen 0.2 0.2-1.0 mg/dL Urine Leukocyte Esterase 500 H NEGATIVE Zunilda/uL Urine RBC 11-25 H 0-1 /HPF Urine WBC TNTC H 0-1 /HPF Urine WBC Clumps (Auto) MANY 0-1 /HPF Urine Squamous Epithelial Cells MANY 0-2 /HPF Urine Non-Squamous Epithelial Cells 2-5 0-2 /HPF Urine Bacteria RARE None Seen /HPF Lactic Acid Level 1.2 0.8-2.5 mmol/L Phosphorus Level 9.3 H 2.5-4.9 mg/dL Magnesium Level 2.10 1.80-2.40 mg/dL ASSESSMENT: Urinary tract infection. Sepsis. End-stage renal disease, on dialysis. Hypertension. PLAN: Continue Zosyn IV. Continue GI prophylaxis. We will follow up on the culture results. Continue dialysis as recommended by diet assistant. This case was reviewed and discussed with my supervising physician Dr. Miguel and the above assessment and plan was formulated and agreed upon. ATTESTATION BY PHYSICIAN I have seen and examined the patient. I reviewed the documentation, medical decision making, and treatment plan as noted by the mid-level provider above. I agree with the findings and plan of care. KAR MIGUEL MD, MIRTA L [facility] Sep 05, 2025 21:47
[2025-09-06] VITALS (17 sets, daily range): BP systolic 120–146; BP diastolic 78–98; PULSE 69–90; RESP 16–18; TEMP 97.3–98.8; O2SAT 97
[2025-09-06 05:29] LABS: IMMATURE GRANULOCYTE ABSOLUTE 0.04 K/uL (0-1); NUCLEATED RED BLOOD CELLS 0.0 % (0.0-0.19); PLATELET COUNT (AUTO) 161 K/uL (130-400); RED BLOOD CELL COUNT(AUTO) 3.76 MIL/uL (4.50-6.20); RED CELL DISTRIBUTION WIDTH 14.1 % (11.0-15.5); WHITE BLOOD COUNT (AUTO) 5.1 K/uL (4.8-10.8)
[2025-09-06 05:45] LABS: GLOMERULAR FILTR. RATE CALC 3.0 mL/min (>90); GLUCOSE,RANDOM 96.0 mg/dL (70-105); SODIUM SERUM 133.0 mmol/L (136-145)
[2025-09-06 05:53] LABS: CREATININE 18.6 mg/dL (0.5-1.3); UREA NITROGEN, BLOOD 75.0 mg/dL (7-18)
--- NOTE | 2025-09-06 15:32 | PN ---
INFECTIOUS DISEASE PROGRESS NOTE Date of Service: Sep 06, 2025 SUBJECTIVE: This is a 40 year old male patient who was seen at bedside in room 327. Patient is awake, alert and oriented x3. patient is afebrile, temperature is 98.2 and a WBC of 5.1. No growth reported on the blood culture results. Patient was dialyzed yesterday and today. 3.7 L removed yesterday and 2.6 L removed today. No dyspnea observed and patient ambulating well. From Infectious Disease standpoint patient is cleared for discharge. Patient already has a prescription for Vantin 200 mg daily that was provided to him 09/02/2025. Patient confirmed that he has the prescription available. PHYSICAL EXAM EYES: Anicteric. Pupils equal and reactive. HENT: No oral thrush seen, moist Oral mucosa NECK: Supple, no JVD or thyromegaly. LUNGS: Good air entry. No rales, no rhonchi. CARDIOVASCULAR: S1, S2 regular. No murmur heard. ABDOMEN: Soft, non tender, bowel sounds present, no organomegaly CENTRAL NERVOUS SYSTEM: Awake, alert, oriented x 3. SKIN: No rashes, no swelling. LYMPHATICS: No peripheral lymphadenopathy MUSCULOSKELETAL: No joint swelling, erythema or tenderness. EXTREMITIES: No cyanosis or clubbing BACK: No deformity, no pressure ulcer. GENITOURINARY: Dysuria and frequent urination. Vital Sign (Last 12 Hours) 09/06/25 09/06/25 09/06/25 09/06/25 04:19 07:00 08:07 08:40 Temp 98.4 98.8 98.6 Pulse 88 69 81 Resp 18 18 16 B/P (MAP) 120/79 142/86 145/93 Pulse Ox 95 97 98 O2 Delivery Room Air Room Air* Room Air Room Air O2 Flow Rate 0 FiO2 21 09/06/25 09/06/25 09/06/25 09/06/25 09:10 09:15 09:30 09:45 Temp 97.3 Pulse 73 76 71 76 Resp 16 16 16 16 B/P (MAP) 136/92 131/93 146/98 132/92 O2 Delivery Room Air Room Air Room Air Room Air 09/06/25 09/06/25 09/06/25 09/06/25 10:00 10:15 10:30 10:45 Pulse 71 79 77 81 Resp 16 16 16 16 B/P (MAP) 145/86 135/97 129/91 137/91 O2 Delivery Room Air Room Air Room Air Room Air 09/06/25 09/06/25 09/06/25 09/06/25 11:00 11:15 11:20 11:53 Temp 98.2 98.1 Pulse 86 83 90 83 Resp 16 16 16 18 B/P (MAP) 137/96 123/91 127/90 123/91 Pulse Ox 98 O2 Delivery Room Air Room Air Room Air Room Air Intake & Output (last 24hrs) 09/05/25 09/05/25 09/06/25 15:00 23:00 07:00 Intake Total 480 ml 240 ml 50.0 ml Output Total 3700 ml Balance 480 ml -3460 ml 50.0 ml LABS: Laboratory: Test 09/06/25 05:18 Range/Units White Blood Count 5.1 4.8-10.8 K/uL Red Blood Count 3.76 L 4.50-6.20 MIL/uL Hemoglobin 11.8 L 14.0-18.0 g/dL Hematocrit 35.9 L 42-54 % Mean Corpuscular Volume 95.5 79-99 fL Mean Corpuscular Hemoglobin 31.4 27.0-33.0 pg Mean Corpuscular Hemoglobin Concent 32.9 32.0-36.0 g/dL Red Cell Distribution Width 14.1 11.0-15.5 % Platelet Count 161 130-400 K/uL Mean Platelet Volume 11.6 H 7.5-10.5 fL Immature Granulocyte % (Auto) 0.8 0-1 % Neutrophils (%) (Auto) 54.8 40.0-77.0 % Lymphocytes (%) (Auto) 22.4 21.0-51.0 % Monocytes (%) (Auto) 17.5 H 3.0-13.0 % Eosinophils (%) (Auto) 3.5 0.0-8.0 % Basophils (%) (Auto) 1.0 0.0-5.0 % Neutrophils # (Auto) 2.8 1.8-7.7 K/uL Lymphocytes # (Auto) 1.2 1.0-4.8 K/uL Monocytes # (Auto) 0.9 0.1-1.0 K/uL Eosinophils # (Auto) 0.18 0.00-0.70 K/uL Basophils # (Auto) 0.05 0.00-0.20 K/uL Absolute Immature Granulocyte (auto 0.04 0-1 K/uL Nucleated Red Blood Cells 0.0 0.0-0.19 % Sodium Level 133 L 136-145 mmol/L Potassium Level 3.8 3.5-5.1 mmol/L Chloride Level 87 *L 101-111 mmol/L Carbon Dioxide Level 28 21-32 mmol/L Blood Urea Nitrogen 75 *H 7-18 mg/dL Creatinine 18.6 *H 0.5-1.3 mg/dL Glomerular Filtration Rate Calc 3 >90 mL/min Random Glucose 96 70-105 mg/dL Total Calcium 8.4 L 8.5-10.1 mg/dL C-Reactive Protein, Quantitative 93.50 H 0.5-3.0 mg/L Procalcitonin > 200.00 H 0.05-0.5 ng/mL ASSESSMENT: Urinary tract infection. Sepsis. End-stage renal disease, on dialysis. Hypertension. PLAN: From Infectious Disease standpoint patient is cleared for discharge. Patient already has a prescription for Vantin 200 mg daily that was provided to him 09/02/2025. Patient confirmed that he has the prescription available. This case was reviewed and discussed with my supervising physician Dr. Miguel and the above assessment and plan was formulated and agreed upon. ATTESTATION BY PHYSICIAN I have seen and examined the patient. I reviewed the documentation, medical dec ision making, and treatment plan as noted by the mid-level provider above. I agree with the findings and plan of care. KAR MIGUEL MD, [facility] Sep 06, 2025 15:32
--- NOTE | 2025-09-06 17:07 | NUR ---
patient's peripheral iv to left hand removed. manual pressure applied x 10 minutes and dressing applied. Patient tolerated with no reported discomfort. Patient refused wheelchair and escorted out ambulatory, accompanied by DISHWASHING MACHINE REPAIRER
--- NOTE | 2025-09-06 17:53 | PN ---
DIALYSIS NOTE SUBJECTIVE: The patient was seen and evaluated on hemodialysis, prescription noted. PHYSICAL EXAMINATION VITAL SIGNS: Blood pressure is 142/86. CARDIOVASCULAR: Regular. LUNGS: Coarse. IMPRESSION: End-stage renal disease. PLAN: The patient will continue with maximal ultrafiltration as blood pressure allows. Once the patient is discharged, the patient will follow up with the dialysis unit. TID: [id number] RECEIPT: [id number]
--- NOTE | 2025-09-06 23:03 | DS ---
Discharge Summary Hospital Course Summary: Mr. Layton is 40 year old male that came to the emergency department with a chief complaint of fever. Onset was 08/29/2025 at 7:00 p.m.. Location is to entire body. Duration is on and off. Character is described as feeling cold. There was no alleviating factors. There was no aggravating factors. Patient reports associated chills .WBCs 15.8, left shift neutrophils 88%, BUN 39, creatinine 13.2, GFR four, troponin 259, no urinalysis was able to be obtained, flu negative, COVID negative, chest x-ray unremarkable. CT of abdomen and pelvis shows fat stranding of the urinary bladder consistent with cystitis. Additionally patient presented with a temperature of 100.9, heart rate 118 together with WBCs of 13.5 patient met clinical sepsis criteria.He was started on intravenous Zosyn during his hospital stay. He was evaluated by nephrology and infectious disease. He remained hemodynamically stable throughout his stay, with resolution of fever and no further chills. Laboratory values showed a downward trend in WBC (to 13.6), persistently elevated CRP (149.60), and procalcitonin (11.34). No acute events occurred during hospitalization. Prior to completion of the recommended course of inpatient management, the patient elected to leave the hospital against medical advice. The risks of leaving AMA, including potential for worsening infection, sepsis, and need for ongoing dialysis and antibiotic therapy, were discussed in detail with the tiff ent. He demonstrated understanding of these risks and signed the appropriate AMA forms. At discharge, Dr. Jo prescribed Vantin 200 mg for outpatient antibiotic therapy. Discharge instructions were provided, including recommendations to continue dialysis on his regular schedule and to seek immediate medical attention for any worsening symptoms. On 09/03/25 patient returned to hospital through emergency department requesting to continue treatment. Patient received hemodialysis during hospital stay along with zosyn and he showed significant clinical improvement, no fevers in the last 24 hours, no chills, no urinary symptoms. He will be discharged today on oral prescription of cefpodoxime for 10 days. Voice Data Communications Engineer(s): ID - Dr. Jo, Nephrology - Dr. Cuenca Assessment/Plan: ASSESSMENT: Sepsis due to UTI, POA Complicated cystitis, POA ESRD on Hemodialysis, POA Hyperphosphatemia, POA Hyponatremia, POA Hypertension Discharge Instructions: ADMISSION DATE : 09/03/25 DISCHARGE DATE: 09/06/25 DISPOSITION : Home CONDITION : Stable MEDICAL HISTORIAN(S) : ID - Dr. Jo, Nephrology - Dr. Cuenca FOLLOW UP APPOINTMENT(S) : f/u with PCP in one 2-3 days PROCEDURES: none IMAGING (S) : none MICROBIOLOGY : report attached to summary ACTIVITY : ad denia HOME MEDICATIONS : Continued Home Medications: Reported Medications Labetalol HCl (Labetalol HCl) 300 Mg Tablet, 300 MG PO BID PRN for IF SBP GREATER THAN 160, TAB 09/02/25 Sevelamer HCl (Sevelamer HCl) 800 Mg Tablet, 1600 MG TIDMEALS 02/08/24 Discontinued Reported Medications Lisinopril (Lisinopril) 10 Mg Tablet, 1 TAB PO DAILY 02/08/24 Continued Medications: Labetalol HCl (Labetalol HCl) 300 Mg Tablet 300 MG PO BID PRN for IF SBP GREATER THAN 160, TAB Sevelamer HCl (Sevelamer HCl) 800 Mg Tablet 1600 MG TIDMEALS Time spent arranging discharge: 1-30 minutes ATTESTATION BY PHYSICIAN I have seen and examined the patient. I reviewed the documentation, medical decision making, and treatment plan as noted by the resident physician above. I agree with the findings and plan of care. KATY GONZALES MD, NIHITHA MD Sep 06, 2025 23:03
== END 2025-09-06 17:16 | disposition home or self-care (01) | DRG 871 ==
LOC: EDH 20:17 → EDHIP 22:16 → 3DH 09-04 01:13
PROVIDERS: ADMIT Internal Medicine; ATTEND Internal Medicine
PROC: 5A1D70Z Performance of Urinary Filtration, Intermittent, Less than 6 Hours Per Day (ICD-10-PCS; principal; 2025-09-05)
PROC: 5A1D70Z Performance of Urinary Filtration, Intermittent, Less than 6 Hours Per Day (ICD-10-PCS; 2025-09-06)
DX: A41.9 Sepsis, unspecified organism (principal); N18.6 End stage renal disease; I12.0 Hypertensive chronic kidney disease with stage 5 chronic kidney disease or end stage renal disease; E87.1 Hypo-osmolality and hyponatremia; N30.90 Cystitis, unspecified without hematuria; D64.9 Anemia, unspecified; E83.39 Other disorders of phosphorus metabolism; Z99.2 Dependence on renal dialysis; Z79.899 Other long term (current) drug therapy
CPT/HCPCS: 36415; 80048; 81001; 83605; 83735; 84100; 84145; 85025; 86140; 87040; 90935; 93005; 99285; G0378; J1644; J2543